=== PATIENT | male | born 1970 | race Caucasian/White ===

== ENCOUNTER → 2017-12-11 01:13 | Outpatient (CLI) | payer BC, SELFPAY ==
--- NOTE | 2017-12-11 09:52 | DI.REPORT_ITS ---
SYMPTOM/DIAGNOSIS: CHRONIC INTRACTABLE HEADACHE R51. 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 No priors for comparison. The abel/white matter differentiation is within normal limits. The ventricles and sulci are consistent with the patient's age. No evidence of an acute infarct or hemorrhage are present. No intracranial mass or enhancing lesion is identified. There is a flow void in the [place]. Mild mucosal thickening is seen in the maxillary sinuses bilaterally. The visualized paranasal sinuses are otherwise clear. IMPRESSION: Negative MRI of the brain.
[2017-12-11] MEDS: Gadoterate meglumine 20 ML VIAL IVP (10:42)
== END ==
PROVIDERS: PCP Emergency Medicine; Visit Provider Emergency Medicine
DX: R51 Headache (principal); C18.1 Malignant neoplasm of appendix; C64.9 Malignant neoplasm of unspecified kidney, except renal pelvis
CPT/HCPCS: 70553

== ENCOUNTER 2018-01-23 18:31 | Emergency (ER) | payer BC, SELFPAY ==
[2018-01-23 18:36] VITALS: BP 157/104; PULSE 67; RESP 16; TEMP 37; O2SAT 98
--- NOTE | 2018-01-23 19:00 | W.ED.GENAD ---
Discharge Plan Disposition Patient Disposition: HOME Condition: Improving Discharge Details Chief Complaint: Urinary Clinical Impression: Right flank pain, Right groin pain, Dysuria Primary Care Provider: Kory Morel ED Provider: Myranda Disla Home Meds and New Rx's Prescriptions: Continue clonazepam [Klonopin] 0.5 MG tablet 0.5 mg PO DAILY Qty: 60 RF: 6 citalopram 10 MG tablet 10 mg PO DAILY Qty: 90 RF: 6 zolpidem [Ambien] 10 MG tablet 1 tab PO HS PRNQty: 90 RF: 3 prochlorperazine maleate 5 MG tablet 5 mg PO Q8H PRN Qty: 90 RF: 3 topiramate [Topamax] 25 MG tablet 25 mg PO HS Qty: 60 RF: 5 clonazepam 0.5 mg tablet 0.5 mg PO HS Qty: 90 RF: 1 multivitamin 1 EACH capsule 1 tab PO DAILY RF: 0 Discharge Instructions Instructions: Dysuria (ED), Flank Pain (ED) Additional Instructions: Alternate tylenol and motrin as needed and directed for pain. Drink plenty of fluids. You should receive a call from care management regarding follow-up with urology. Return immediately to the emergency department any worsening or new concerning symptoms such as fever, worsening pain or any other concerns. 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 I am concerned for obstructing renal stone. Patient would prefer to pursue ultrasound over CT imaging. No assistant technician available in-house -- will ask for tech to come in to perform ultrasound. Toradol IV for pain. -- ECG reviewed and interpreted by me: Sinus bradycardia 55 bpm, single T-wave inversion noted in lead III, left axis deviation, not diagnostic. 20:09 --labs reviewed and nondiagnostic. Unfortunately operating theatre technician is not available. Plan to proceed to CT imaging. Patient consents to CT imaging. Patient reassessed and notes significant improvement after Toradol. Care signed out to Dr. Disla with plan to follow-up on imaging and reassess the patient. Lab Data Lab results reviewed: Yes I reviewed the patient's lab results. Laboratory Tests 01/23/18 01/23/18 01/23/18 18:57 18:57 18:57 WBC 8.62 RBC 4.80 Hgb 14.8 Hct 40.2 MCV 83.8 MCH 30.8 MCHC 36.8 H RDW 12.5 Plt Count 231 MPV 9.3 Immature Gran % 0.3 Neutrophils % 45.1 Lymphocytes % 43.3 Monocytes % 9.3 Eosinophils % 1.7 Basophils % 0.3 Absolute Neutrophils 3.88 Absolute Lymphocytes 3.73 H Absolute Monocytes 0.80 H Absolute Eosinophils 0.15 Absolute Basophils 0.03 Sodium 140 Potassium 3.7 Chloride 105 Carbon Dioxide 23.7 Anion Gap 11.3 H BUN 19 H Creatinine 1.41 H Estimated GFR/1.73 m2 54.35 Glucose 97 Calcium 8.8 Total Bilirubin 0.5 AST 40 H ALT 79 H Alkaline Phosphatase 52 Total Protein 7.6 Albumin 4.2 Lipase 225 Urine Color Yellow Urine Clarity Clear Urine pH 6.5 Ur Specific [place] 1.025 Urine Protein Negative Urine Ketones Trace H Urine Blood Negative Urine Nitrite Negative Urine Bilirubin Negative Urine Urobilinogen 0.2 Ur Leukocyte Esterase Negative Urine Glucose Negative <Myranda Disla, DO - Last Filed: 01/27/18 08:51> [facility] Narrative Medical decision making narrative: Please see Dr. Philip Razo's note for initial presentation, exam and plan. 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 Pt states the pain started in his R flank 8 days ago and then progressed to his R groin a few days ago and since then the flank pain resolved. Pt describes the pain as constant throbbing and aching with intermittent sharp pain. States his pain is worse with drinking water. States that pain feels similar to his previous renal stones. He also admits to dysuria. Some relief with motrin today. Denies fever, nausea, vomiting, hematuria. Plan upon endorsement was for f/u on CT to r/o renal stones. Labs reviewed and essentially unremarkable. WBC 8.62, Cr 1.4, UA notes ketones but no infection or blood. Hiren noted 0-2 rbc and wbc. Upon my evaluation, patient admitted to improvement of pain with Toradol from 6-07/15. He admits to return of pain at 10. Dose of morphine given. During my evaluation room, patient admitted to relief of some pain with morphine. 2144 --CT negative for acute findings. Patient stated to me that he felt like his dysuria started sometime yesterday which he thought was consistent with possibly passing a stone. I explained to patient that as his pain felt similar to his previous kidney stones, started in his right flank, then migrated to his right lower quadrant and then followed by dysuria, he may have certainly passed stone. He may have passed a small stone that may not have produced hydronephrosis. His CT did note hepatomegaly and his lab work noted an AST of 40 and an ALT of 79 which have been more elevated in the past. Patient expressed confusion about his pain and his negative CAT scan. I discussed that he could have had a recently passed stone. Additional differential diagnoses of pain in this region includes a muscle strain, groin strain. He has a previous history of appendectomy. He had a normal and testicular exam and denies exposure to sexually transmitted disease, penile discharge making epididymitis and torsion unlikely. He states he is sexually active with his and does not use protection. Patient is requesting to go home. He states he feels much better. Patient was not given IV fluids on arrival and his creatinine was 1.4. He was offered IV fluids but declines and is drinking water in room. He was instructed to drink plenty of water over the next few days. Patient has been seen in the past by Dr. Simpson for his kidney stones. Will place patient on care management list to arrange for a follow-up appointment w/ Dr. Simpson within the next 1-2 weeks if his symptoms are still present. Patient was instructed to return here immediately if he has any worsening symptoms. HPI - General Adult <Philip Razo MD - Last Filed: 01/28/18 08:15> General Mode of arrival: ambulatory. Date/Time Provider Initiated Documentation: 01/23/18 18:34. Limitations to Documentation: no limitations. Information obtained by: patient. 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 Patient notes pain that started in his right lower back approximately 8 days ago and has waxed and waned since onset. Pain has migrated in location to nail right lower abdomen. Pain is been more severe over the past couple days. He has worsening pain after urination. He has no associated fever. No vomiting. Related Data Home Medications Medication Instructions Recorded Confirmed multivitamin 1 tab PO DAILY 10/03/14 01/23/18 clonazepam 0.5 mg tablet 0.5 mg PO DAILY #60 tab 06/16/17 01/23/18 citalopram 10 mg PO DAILY #90 tab-cap 08/09/17 01/23/18 zolpidem [Ambien] 1 tab PO HS PRN #90 tab 09/20/17 01/23/18 prochlorperazine maleate 5 mg PO Q8H PRN #90 tab-cap 12/21/17 01/23/18 topiramate [Topamax] 25 mg PO HS #60 tab-cap 12/21/17 01/23/18 clonazepam 0.5 mg tablet 0.5 mg PO HS #90 tab 01/09/18 01/23/18 Previous Rx's Medication Instructions Recorded clonazepam 0.5 mg tablet 0.5 mg PO DAILY #60 tab 06/16/17 citalopram 10 mg PO DAILY #90 tab-cap 08/09/17 prochlorperazine maleate 5 mg PO Q8H PRN #90 tab-cap 12/21/17 topiramate [Topamax] 25 mg PO HS #60 tab-cap 12/21/17 clonazepam 0.5 mg tablet 0.5 mg PO HS #90 tab 01/09/18 Allergies Allergy/AdvReac Type Severity Reaction Status Date / Time rofecoxib [From Vioxx] AdvReac ESOPHIGITIS Unverified 12/21/17 10:55 anesthesia AdvReac Nausea Uncoded 01/04/17 07:15 General Stated Complaint: Urinary SAUL: 3 Review of Systems <Philip Razo MD - Last Filed: 01/28/18 08:15> Review of Systems All systems reviewed & are unremarkable except as noted in HPI and below Gastrointestinal Reports abdominal pain, Denies nausea and Denies vomiting Genitourinary Denies dysuria Exam <Philip Razo MD - Last Filed: 01/28/18 08:15> Const General: well developed and not in acute distress HENMT Mouth: moist mucous membranes Eyes Conjunctivae: conjunctivae normal Sclera: sclerae normal Neck Neck: normal visual inspection Resp Effort & Inspection: normal respiratory effort and no respiratory distress Auscultation: no rales, no rhonchi and no wheezes Cardio Jugular venous pressure: no JVD Rate: regular rate Rhythm: regular rhythm Heart Sounds: no gallops, no murmurs and no rubs GI Inspection: non-distended Palpation: soft, not firm, no guarding, not rigid and tender in the RLQ Auscultation: normal bowel sounds Skin General skin exam: no rashes or lesions noted and other (warm) Neuro General: alert, awake and moves all extremities Extrem General: no edema Psych Appearance: grossly normal Mental Status: mental status grossly normal Speech and Movement: speech and movement normal Course <Philip Razo MD - Last Filed: 01/28/18 08:15> Vital Signs Temperature 37.0 C 01/23/18 18:36 Pulse 67 01/23/18 18:36 Respiratory Rate 16 01/23/18 18:36 Blood Pressure 157/104 H 01/23/18 18:36 Pulse Oximetry 98 01/23/18 18:36 Temperature 37.0 C 01/23/18 18:36 Pulse 67 01/23/18 18:36 Respiratory Rate 16 01/23/18 18:36 Blood Pressure 157/104 H 01/23/18 18:36 Pulse Oximetry 98 01/23/18 18:36 Sign Out <Philip Razo MD - Last Filed: 01/28/18 08:15> Sign Out Data: Sign Out Comment: f/u ct, reassess patient, dispo Last updated by Philip Razo MD at 01/23/18 21:07
--- NOTE | 2018-01-23 19:09 | ED.GENADUL_ITS ---
Discharge Plan Disposition Patient Disposition: HOME Condition: Improving Discharge Details Chief Complaint: Urinary Clinical Impression: Right flank pain, Right groin pain, Dysuria Primary Care Provider: Kory Morel ED Provider: Myranda Disla Home Meds and New Rx's Prescriptions: Continue clonazepam [Klonopin] 0.5 MG tablet 0.5 mg PO DAILY Qty: 60 RF: 6 citalopram 10 MG tablet 10 mg PO DAILY Qty: 90 RF: 6 zolpidem [Ambien] 10 MG tablet 1 tab PO HS PRNQty: 90 RF: 3 prochlorperazine maleate 5 MG tablet 5 mg PO Q8H PRN Qty: 90 RF: 3 topiramate [Topamax] 25 MG tablet 25 mg PO HS Qty: 60 RF: 5 clonazepam 0.5 mg tablet 0.5 mg PO HS Qty: 90 RF: 1 multivitamin 1 EACH capsule 1 tab PO DAILY RF: 0 Discharge Instructions Instructions: Dysuria (ED), Flank Pain (ED) Additional Instructions: Alternate tylenol and motrin as needed and directed for pain. Drink plenty of fluids. You should receive a call from care management regarding follow-up with urology. Return immediately to the emergency department any worsening or new concerning symptoms such as fever, worsening pain or any other concerns. 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 I am concerned for obstructing renal stone. Patient would prefer to pursue ultrasound over CT imaging. No aircraft engine technician available in-house -- will ask for tech to come in to perform ultrasound. Toradol IV for pain. -- ECG reviewed and interpreted by me: Sinus bradycardia 55 bpm, single T-wave inversion noted in lead III, left axis deviation, not diagnostic. 20:09 --labs reviewed and nondiagnostic. Unfortunately farm technician is not available. Plan to proceed to CT imaging. Patient consents to CT imaging. Patient reassessed and notes significant improvement after Toradol. Care signed out to Dr. Disla with plan to follow-up on imaging and reassess the patient. Lab Data Lab results reviewed: Yes I reviewed the patient's lab results. Laboratory Tests 01/23/18 01/23/18 01/23/18 18:57 18:57 18:57 WBC 8.62 RBC 4.80 Hgb 14.8 Hct 40.2 MCV 83.8 MCH 30.8 MCHC 36.8 H RDW 12.5 Plt Count 231 MPV 9.3 Immature Gran % 0.3 Neutrophils % 45.1 Lymphocytes % 43.3 Monocytes % 9.3 Eosinophils % 1.7 Basophils % 0.3 Absolute Neutrophils 3.88 Absolute Lymphocytes 3.73 H Absolute Monocytes 0.80 H Absolute Eosinophils 0.15 Absolute Basophils 0.03 Sodium 140 Potassium 3.7 Chloride 105 Carbon Dioxide 23.7 Anion Gap 11.3 H BUN 19 H Creatinine 1.41 H Estimated GFR/1.73 m2 54.35 Glucose 97 Calcium 8.8 Total Bilirubin 0.5 AST 40 H ALT 79 H Alkaline Phosphatase 52 Total Protein 7.6 Albumin 4.2 Lipase 225 Urine Color Yellow Urine Clarity Clear Urine pH 6.5 Ur Specific [place] 1.025 Urine Protein Negative Urine Ketones Trace H Urine Blood Negative Urine Nitrite Negative Urine Bilirubin Negative Urine Urobilinogen 0.2 Ur Leukocyte Esterase Negative Urine Glucose Negative <Myranda Disla, DO - Last Filed: 01/27/18 08:51> [facility] Narrative Medical decision making narrative: Please see Dr. Philip Razo's note for initial presentation, exam and plan. 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 Pt states the pain started in his R flank 8 days ago and then progressed to his R groin a few days ago and since then the flank pain resolved. Pt describes the pain as constant throbbing and aching with intermittent sharp pain. States his pain is worse with drinking water. States that pain feels similar to his previous renal stones. He also admits to dysuria. Some relief with motrin today. Denies fever, nausea, vomiting, hematuria. Plan upon endorsement was for f/u on CT to r/o renal stones. Labs reviewed and essentially unremarkable. WBC 8.62, Cr 1.4, UA notes ketones but no infection or blood. Hiren noted 0-2 rbc and wbc. Upon my evaluation, patient admitted to improvement of pain with Toradol from 6- 07/15. He admits to return of pain at 10. Dose of morphine given. During my evaluation room, patient admitted to relief of some pain with morphine. 2144 --CT negative for acute findings. Patient stated to me that he felt like his dysuria started sometime yesterday which he thought was consistent with possibly passing a stone. I explained to patient that as his pain felt similar to his previous kidney stones, started in his right flank, then migrated to his right lower quadrant and then followed by dysuria, he may have certainly passed stone. He may have passed a small stone that may not have produced hydronephrosis. His CT did note hepatomegaly and his lab work noted an AST of 40 and an ALT of 79 which have been more elevated in the past. Patient expressed confusion about his pain and his negative CAT scan. I discussed that he could have had a recently passed stone. Additional differential diagnoses of pain in this region includes a muscle strain, groin strain. He has a previous history of appendectomy. He had a normal and testicular exam and denies exposure to sexually transmitted disease, penile discharge making epididymitis and torsion unlikely. He states he is sexually active with his and does not use protection. Patient is requesting to go home. He states he feels much better. Patient was not given IV fluids on arrival and his creatinine was 1.4. He was offered IV fluids but declines and is drinking water in room. He was instructed to drink plenty of water over the next few days. Patient has been seen in the past by Dr. Simpson for his kidney stones. Will place patient on care management list to arrange for a follow-up appointment w/ Dr. Simpson within the next 1-2 weeks if his symptoms are still present. Patient was instructed to return here immediately if he has any worsening symptoms. HPI - General Adult <Philip Razo MD - Last Filed: 01/28/18 08:15> General Mode of arrival: ambulatory . Date/Time Provider Initiated Documentation: 01/23/18 18:34 . Limitations to Documentation: no limitations . Information obtained by: patient . 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 Patient notes pain that started in his right lower back approximately 8 days ago and has waxed and waned since onset. Pain has migrated in location to nail right lower abdomen. Pain is been more severe over the past couple days. He has worsening pain after urination. He has no associated fever. No vomiting. Related Data Home Medications Medication Instructions Recorded Confirmed multivitamin 1 tab PO DAILY 10/03/14 01/23/18 clonazepam 0.5 mg tablet 0.5 mg PO DAILY #60 tab 06/16/17 01/23/18 citalopram 10 mg PO DAILY #90 tab-cap 08/09/17 01/23/18 zolpidem [Ambien] 1 tab PO HS PRN #90 tab 09/20/17 01/23/18 prochlorperazine maleate 5 mg PO Q8H PRN #90 tab-cap 12/21/17 01/23/18 topiramate [Topamax] 25 mg PO HS #60 tab-cap 12/21/17 01/23/18 clonazepam 0.5 mg tablet 0.5 mg PO HS #90 tab 01/09/18 01/23/18 Previous Rx's Medication Instructions Recorded clonazepam 0.5 mg tablet 0.5 mg PO DAILY #60 tab 06/16/17 citalopram 10 mg PO DAILY #90 tab-cap 08/09/17 prochlorperazine maleate 5 mg PO Q8H PRN #90 tab-cap 12/21/17 topiramate [Topamax] 25 mg PO HS #60 tab-cap 12/21/17 clonazepam 0.5 mg tablet 0.5 mg PO HS #90 tab 01/09/18 Allergies Allergy/AdvReac Type Severity Reaction Status Date / Time rofecoxib [From Vioxx] AdvReac ESOPHIGITIS Unverified 12/21/17 10:55 anesthesia AdvReac Nausea Uncoded 01/04/17 07:15 General Stated Complaint: Urinary SAUL: 3 Review of Systems <Philip Razo MD - Last Filed: 01/28/18 08:15> Review of Systems All systems reviewed & are unremarkable except as noted in HPI and below Gastrointestinal Reports abdominal pain, Denies nausea and Denies vomiting Genitourinary Denies dysuria Exam <Philip Razo MD - Last Filed: 01/28/18 08:15> Const General: well developed and not in acute distress HENMT Mouth: moist mucous membranes Eyes Conjunctivae: conjunctivae normal Sclera: sclerae normal Neck Neck: normal visual inspection Resp Effort & Inspection: normal respiratory effort and no respiratory distress Auscultation: no rales, no rhonchi and no wheezes Cardio Jugular venous pressure: no JVD Rate: regular rate Rhythm: regular rhythm Heart Sounds: no gallops, no murmurs and no rubs GI Inspection: non-distended Palpation: soft, not firm, no guarding, not rigid and tender in the RLQ Auscultation: normal bowel sounds Skin General skin exam: no rashes or lesions noted and other (warm) Neuro General: alert, awake and moves all extremities Extrem General: no edema Psych Appearance: grossly normal Mental Status: mental status grossly normal Speech and Movement: speech and movement normal Course <Philip Razo MD - Last Filed: 01/28/18 08:15> Vital Signs Temperature 37.0 C 01/23/18 18:36 Pulse 67 01/23/18 18:36 Respiratory Rate 16 01/23/18 18:36 Blood Pressure 157/104 H 01/23/18 18:36 Pulse Oximetry 98 01/23/18 18:36 Temperature 37.0 C 01/23/18 18:36 Pulse 67 01/23/18 18:36 Respiratory Rate 16 01/23/18 18:36 Blood Pressure 157/104 H 01/23/18 18:36 Pulse Oximetry 98 01/23/18 18:36 Sign Out <Philip Razo MD - Last Filed: 01/28/18 08:15> Sign Out Data: Sign Out Comment: f/u ct, reassess patient, dispo Last updated by Philip Razo MD at 01/23/18 21:07
[2018-01-23 19:15] LABS: Bilirubin Negative (Negative); Blood Negative (Negative); Clarity Clear; Glucose Negative (Negative); Ketones Trace mg/dL (Negative); Leukocyte Esterase Negative (Negative); Nitrite Negative (Negative); Specific Gravity 1.025 (1.005-1.025); Urobilinogen 0.2 EU/dL (Up TO 0.2); pH 6.5 (5-8)
[2018-01-23 19:18] LABS: Abs Immature Grans 0.03 k/cumm (0.0-0.09); Absolute Basophil Count 0.03 k/cumm (0.0-0.2); Absolute Eosinophil Count 0.15 k/cumm (0.0-0.7); Absolute Lymphocyte Count 3.73 k/cumm (1.2-3.4); Absolute Neutrophil Count 3.88 k/cumm (1.2-6.7); Basophils % 0.3; Eosinophils % 1.7; HCT 40.2 % (40.0-50.0); HGB 14.8 g/dL (13.5-17.5); Immature Grans % 0.3; Lymphocytes % 43.3; Mean Corp. HGB Concentration 36.8 g/dL (32.0-36.0); Mean Corpuscular Hemoglobin 30.8 pg (27.0-33.0); Mean Corpuscular Volume 83.8 fL (80-95); Mean Platelet Volume 9.3 fL (8.0-11.0); Monocytes % 9.3; Neutrophils % 45.1; Platelet Count 231 x1000/uL (130-400); RBC Distribution Width 12.5 % (11.8-14.1); White Blood Cell Count 8.62 k/cumm (4.4-10.8)
[2018-01-23 19:29] LABS: ALT 79 U/L (12-78); AST 40 U/L (15-37); Albumin 4.2 g/dL (3.4-5.0); Alkaline Phosphatase 52 U/L (46-116); Anion Gap 11.3 mmol/L (3-11); BUN 19 mg/dL (7-18); Bilirubin, Total 0.5 mg/dL (0.2-1.0); CO2 23.7 mmol/L (21.0-32.0); CREATININE 1.41 mg/dL (0.70-1.30); Calcium 8.8 mg/dL (8.5-10.1); Chloride 105 mmol/L (98-107); Estimated GFR 54.35 (mL/min/1.73m2); Glucose 97 mg/dL (70-100); Lipase 225 U/L (73-393); Potassium 3.7 mmol/L (3.5-5.1); Sodium 140 mmol/L (136-145); Total Protein 7.6 g/dL (6.4-8.2)
--- NOTE | 2018-01-23 20:07 | DI.CT_ITS ---
SYMPTOM/DIAGNOSIS: RLQ PAIN, H/O STONES ABDOMEN AND PELVIC CT: A noncontrast CT of the abdomen and pelvis was performed. Images obtained through the lung bases are unremarkable. Note is made of hepatic steatosis. Liver and spleen otherwise unremarkable. Gallbladder is CT normal. Pancreas is unremarkable in appearance and no biliary dilatation is seen. Adrenals appear intact bilaterally. There is a non obstructing right lower pole renal calculus. No additional urinary tract calcification is seen. No evidence of obstruction. Urinary bladder grossly unremarkable by noncontrast criteria. No significant abdominal wall hernia is seen. No abdominal or pelvic adenopathy is seen. Apparent prior appendectomy versus cecal resection noted. No other focal bowel pathology identified. CONCLUSION: 1. Non obstructing right renal calculus. 2. Hepatic steatosis.
[2018-01-23] MEDS: MORPHine 10 MG/ML VIAL 4 MG IVP (20:53)
[2018-01-23 21:01] VITALS: BP 157/105; PULSE 54; RESP 17; TEMP 36.6; O2SAT 100
--- NOTE | 2018-01-23 21:26 | DI.VRAD_ITS ---
EXAM: CT Abdomen and Pelvis Without Intravenous Contrast EXAM DATE/TIME: 01/23/2018 8:08 PM CLINICAL HISTORY: 47 years old, male; Signs and symptoms; Other: Pain rlq; Prior surgery; Surgery date: 6+ months TECHNIQUE: Axial computed tomography images of the abdomen and pelvis without intravenous contrast. Coronal and sagittal reformatted images were created and reviewed. COMPARISON: CT RENAL COLIC WO CONTRAST 01/26/2017 5:15 PM FINDINGS: Lower thorax: No acute findings. ABDOMEN: Liver: There are is hepatomegaly. The liver measured approximately 20.1 cm in the midclavicular line. There is associated moderate-advanced diffuse hepatic steatosis present. Gallbladder and bile ducts: Normal. No calcified stones. No ductal dilation. Pancreas: Normal. No ductal dilation. Spleen: Normal. No splenomegaly. Adrenals: Normal. No mass. Kidneys and ureters: 3.9 mm non- obstructing calculus is again seen in the anterolateral mid-lower right renal pole. This has remained unchanged in size and position. Stomach and bowel: Circumferential surgical sutures are seen in the mid-lower ascending colon from prior surgical anastomosis. Appendix: There is thought to have been prior appendectomy. Correlation with past known surgical history is needed. PELVIS: Bladder: Unremarkable as visualized. Reproductive: Unremarkable as visualized. ABDOMEN and PELVIS: Intraperitoneal space: Normal. No free air. No significant fluid collection. Bones/joints: Moderate bilateral popliteal facet arthropathy is present at L4-5 and L5-S1. Minimal marginal osteophytic spurring is present throughout the lumbar vertebrae. Soft tissues: Unremarkable. Vasculature: Normal. No abdominal aortic aneurysm. Lymph nodes: Normal. No enlarged lymph nodes. IMPRESSION: No acute findings are detected. Dictated and Authenticated by: Piyush Ballesteros MD. Ordering:MONI BUSTOS MD
[2018-01-23 22:44] VITALS: BP 118/70; PULSE 86; RESP 18; TEMP 36.8; O2SAT 99
--- NOTE | 2018-01-24 08:35 | NUR.NOTE ---
renal ultra sound order cancelled per Dr. Adams as no US. tech was available on DOS. Nursing Note:
--- NOTE | 2018-01-24 09:18 | PDOC.ERCMPRO ---
Care Management Progress Note 01/24/18-Pt seen for lower right sided back pain by Dr. Sherley shahid on 01/23/18. F/U with Urology request faxed .
--- NOTE | 2018-01-24 09:19 | CMPROGNOTE_ITS ---
Care Management Progress Note 01/24/18-Pt seen for lower right sided back pain by Dr. Sherley shahid on 01/23/18. F /U with Urology request faxed .
== END 2018-01-23 22:42 | disposition home or self-care (01) ==
PROVIDERS: Student in an Organized Health Care Education/Training Program; Emergency Provider Physician Assistant; PCP Emergency Medicine
DX: R30.0 Dysuria (principal); R10.31 Right lower quadrant pain; M54.5 Low back pain; Z87.442 Personal history of urinary calculi
CPT/HCPCS: 36415; 36416; 80053; 82962; 83690; 93005; 96374; 99285; 74176; 81003; 85025; 93010; 99284; J2270

== ENCOUNTER 2018-02-14 09:29 | Outpatient (REF) | payer BC, SELFPAY ==
[2018-02-14 10:28] LABS: Creatinine,Urine 109.01 mg/dL
[2018-02-14 10:30] LABS: Sodium, Urine 140 mmol/L
[2018-02-14 10:37] LABS: CLEAVED CELLS 371 mmol/24h (40-220); Creatinine,24hr Ur 2.83 g/24hr (0.95-2.49); Total Volume 2650 ml
[2018-02-15 09:13] LABS: Phosphorus Urine 79.1 mg/dl; Phosphorus Urine 24hr 2.1 g/24h (0.4-1.3)
[2018-02-15 09:17] LABS: Magnesium 24hr Urine 188.2 mg/24h (73.0-122.0); Magnesium Random Urine 7.1 mg/dl
[2018-02-15 09:19] LABS: Uric Acid Urine 40.4 mg/dl; Uric Acid Urine 24hr 1071 mg/24h (250-750)
[2018-02-15 09:22] LABS: Calcium Urine 20.8 mg/dl; Calcium Urine 24 hr 551 mg/24hr (100-300)
[2018-02-15 17:46] LABS: Citrate Excretion, 24hr, U 490 mg/24 h (335 - 1191); Urine Volume 2650 mL
[2018-02-15 18:33] LABS: Oxalate Conc (mmol/L) 0.13 mmol/L; Oxalate Concentration 11.4 mg/L; Oxalate, U 0.34 mmol/24 h (0.11-0.46); Oxalate, U 29.9 mg/24 h (9.7 - 40.5); Urine Volume 2650 mL
== END 2018-02-14 09:49 ==
LOC: LBN 09:29
PROVIDERS: PCP Emergency Medicine; Visit Provider Urology
DX: N20.0 Calculus of kidney (principal)
CPT/HCPCS: 82507; 83735; 81050; 82340; 82570; 83945; 84105; 84300; 84560

== ENCOUNTER 2018-02-15 10:57 | Outpatient (CLI) | payer BC, SELFPAY | END 2018-02-15 11:17 | PROVIDERS: PCP Emergency Medicine; Visit Provider Psychiatry & Neurology Neurology | DX: R51 Headache (principal) | CPT/HCPCS: 36415; 87476 ==

== ENCOUNTER 2019-01-21 23:33 | Emergency (ER) | payer BC, SELFPAY ==
[2019-01-21 23:42] VITALS: BP 166/96; PULSE 56; RESP 20; TEMP 37.1; O2SAT 98
[2019-01-21] MEDS: Normal Saline 1,000 ML 150 ML IV (23:45)
--- NOTE | 2019-01-21 23:57 | ED.GENADUL_ITS ---
Discharge Plan Disposition Patient Disposition: HOME Condition: Good Discharge Details Chief Complaint: FlankPain Clinical Impression: Renal colic on right side Primary Care Provider: Kory Morel ED Provider: Berhane Mo Meds and New Rx's Prescriptions: New oxycodone 5 mg tablet 5 mg PO Q6H PRN (Reason: pain) Qty: 10 RF: 0 Discharge Instructions Instructions: Oxycodone, Rapid Release (By mouth), Renal Colic (ED) Additional Instructions: Please take 1 g of Tylenol when you get home at 2 AM. Alternate with ibuprofen 600 mg in 4 hours. Use oxycodone if needed for breakthrough pain. Stay hydrated. Follow-up with Dr. Simpson end of this week or early next week if you have not passed the stone. Return to ED if you develop fever, uncontrolled pain, uncontrolled vomiting. Referrals: Kory Morel, [Primary Care Provider] - Len Simpson MD [ [facility] STAFF PHYSICIAN] - Medical Decision Making Patient presenting with pain that he reports similar to previous kidney stones. Onset this evening and worse as the night went on. 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 Last CT documented in the record is from June. At that time he was seen to have a 3 mm stone in the right kidney. He reports that all previous kidney stones have passed on their own. Will place IV and give antiemetic and pain medication. Will send CBC, BMP and urinalysis. Patient urinalysis is positive for blood but no sign of infection. White count essentially normal. Kidney function is baseline. Patient had relief of pain with Toradol and morphine. 3 mm stone should pass on its own and given where his pain is it is likely distal at this point. We will hold off on imaging for now. We will have patient use Motrin alternating with Tylenol but will give oxycodone for breakthrough pain. State information sheet and consent form done. Reviewed with patient in the [place] prescription monitoring site shows no narcotics in the last year. He declines Flomax. He will follow-up with Dr. Simpson at the end of the week if he has not passed a stone. Return to ED if he develops fever, uncontrolled pain, uncontrolled vomiting. Medical Records Medical records reviewed: Yes I reviewed the patient's medical records. Lab Data Lab results reviewed: Yes I reviewed the patient's lab results. HPI General Mode of arrival: ambulatory . Date/Time Provider Initiated Documentation: 01/21/19 23:57 . Limitations to Documentation: no limitations . Information obtained by: patient, RN notes reviewed and old records reviewed . HPI Narrative: Patient presents to ED with complaint of right-sided flank and abdominal pain. Patient does have a history of kidney stones. Pain started around 7 PM this evening. Has become progressively worse. Stabbing pain in the back and flank. Constant pain in the abdomen radiating down into the groin. He did have nausea and vomiting with uncontrolled pain. He has had no fever. He is unable to get comfortable at this point and presents to ED for evaluation. Related Data Home Medications Medication Instructions Recorded Confirmed oxycodone 5 mg PO Q6H PRN #10 tab 01/22/19 Previous Rx's Medication Instructions Recorded oxycodone 5 mg PO Q6H PRN #10 tab 01/22/19 Allergies Allergy/AdvReac Type Severity Reaction Status Date / Time rofecoxib [From Vioxx] AdvReac ESOPHIGITIS Verified 01/21/19 23:55 anesthesia AdvReac Nausea Uncoded 01/21/19 23:55 General Stated Complaint: FlankPain SAUL: 3 Review of Systems Review of Systems Narrative: 02/18 Review of Systems completed and is negative except as stated above in HPI (Systems reviewed: Const, Eyes, ENT, Resp, CV, GI, , MSK, Skin, Neuro) PFSH Medical History Adenocarcinoma of appendix (Chronic) 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 Shoulder surgery x2. b. Knee surgery x2. c. Lap right hemicolectomy 01/14/2014 Repair, ACL LEFT Social History Smoking/Tobacco Use Status: Never Drug use: Never Household members: spouse Do you feel safe at home: Yes Do you feel safe in your relationship?: Yes Additional Social history: He is with 4 kids (college to 7th grade). 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 He does not smoke. He drinks ETOH rarely. No illicit drug use. Exam Narrative Exam Narrative: Vitals: Afebrile. Elevated blood pressure otherwise normal vitals and pulse ox. Const: WDWN male appears uncomfortable, holding right lower back. HEENT: NC/AT. Normal facial exam. Eyes: Normal conjunctiva and sclera. Neck: Supple. Trachea midline. Lungs: Normal respiratory effort. Lungs are clear. Cor: RRR without murmur/gallop. Good radial pulses. GI: Soft. NT/ND. No guarding or rebound. Neuro: A+O x 3. CN grossly in tact. Good strength and no focal deficit. Ext: No C/C/E. No deformity or tenderness. Skin: Warm and dry without rash. Course Vital Signs Vital signs: Vital Signs Temperature 98.8 F 01/21/19 23:42 Pulse 56 L 01/21/19 23:42 Respiratory Rate 20 01/21/19 23:42 Blood Pressure 166/96 H 01/21/19 23:42 Pulse Oximetry 98 01/21/19 23:42 Temperature 98.8 F 01/21/19 23:42 Temperature Source Temporal Artery Scan 01/21/19 23:42 Pulse 56 L 01/21/19 23:42 Respiratory Rate 20 01/21/19 23:42 Respiratory Effort Non-Labored 01/21/19 23:55 Blood Pressure 166/96 H 01/21/19 23:42 Blood Pressure Position Supine 01/21/19 23:42 Pulse Oximetry 98 01/21/19 23:42 Oxygen Delivery Method Room Air 01/21/19 23:42 Oxygen Flow Rate 0 01/21/19 23:42 Pain Level 8 01/21/19 23:55
[2019-01-22] MEDS: Ondansetron 4 MG/2 ML VIAL IVP (00:10)
[2019-01-22] MEDS: MORPHine 10 MG/ML VIAL 5 MG IVP (00:15)
[2019-01-22] MEDS: Ketorolac 30 MG/ML VIAL IVP (00:22)
[2019-01-22 00:37] LABS: Abs Immature Grans 0.03 k/cumm (0.0-0.09); Absolute Basophil Count 0.03 k/cumm (0.0-0.2); Absolute Eosinophil Count 0.06 k/cumm (0.0-0.7); Absolute Lymphocyte Count 2.15 k/cumm (1.2-3.4); Absolute Monocyte Count 0.65 k/cumm (0.11-0.7); Absolute Neutrophil Count 8.41 k/cumm (1.2-6.7); Basophils % 0.3; Eosinophils % 0.5; HCT 41.7 % (40.0-50.0); HGB 14.9 g/dL (13.5-17.5); Immature Grans % 0.3; Mean Corp. HGB Concentration 35.7 g/dL (32.0-36.0); Mean Corpuscular Hemoglobin 31.5 pg (27.0-33.0); Mean Corpuscular Volume 88.2 fL (80-95); Mean Platelet Volume 10.3 fL (8.0-11.0); Monocytes % 5.7; Neutrophils % 74.2; Platelet Count 218 x1000/uL (130-400); RBC 4.73 m/cumm (4.50-6.00); RBC Distribution Width 12.3 % (11.8-14.1); White Blood Cell Count 11.34 k/cumm (4.4-10.8)
[2019-01-22 00:41] LABS: Bilirubin Negative (Negative); Blood Large (Negative); Clarity Clear (Clear); Glucose Negative (Negative); Ketones Negative (Negative); Leukocyte Esterase Negative (Negative); Nitrite Negative (Negative); Specific Gravity 1.025 (1.005-1.025); Urobilinogen 0.2 EU/dL (Up TO 0.2); pH 5.5 (5-8)
[2019-01-22 00:45] LABS: Anion Gap 11.4 mmol/L (3-11); BUN 32 mg/dL (7-18); CO2 23.6 mmol/L (21.0-32.0); CREATININE 1.42 mg/dL (0.70-1.30); Calcium 9.2 mg/dL (8.5-10.1); Chloride 104 mmol/L (98-107); Estimated GFR 53.67 (mL/min/1.73m2); Glucose 133 mg/dL (70-100); Sodium 139 mmol/L (136-145)
[2019-01-22 00:48] LABS: Bacteria Negative HPF (Negative); C & S Indicated? No; Casts Negative LPF (Negative); Crystals Negative HPF (Negative); Epithelial Cells Rare HPF (Negative); Mucus Negative (Negative); RBC >50 (0-2); WBC Negative HPF (0-5)
[2019-01-22] MEDS: oxyCODONE 5 MG TAB PO (01:16)
== END 2019-01-22 01:32 | disposition home or self-care (01) ==
PROVIDERS: Emergency Provider Emergency Medicine; PCP Emergency Medicine
DX: N23 Unspecified renal colic (principal); M54.5 Low back pain; R11.2 Nausea with vomiting, unspecified; Z87.442 Personal history of urinary calculi
CPT/HCPCS: 36415; 80048; 96361; 96374; 96375; 99284; 81003; 81015; 85025; J1885; J2270; J2405

== ENCOUNTER 2019-01-24 17:20 | Observation (INO) | payer BC, SELFPAY ==
--- NOTE | 2019-01-24 17:27 | W.PM.HP.N ---
Date of service: 01/24/19 Time of Service: 17:28 Assessment and Plan Assessment and plan (1) Renal colic on right side: Status: Acute Assessment and plan: He is not able to tolerate oral medications, so we will put him in the hospital for IV hydration and IV analgesics. We will schedule him for cystoscopy, right retrograde pyelogram, right ureteroscopy with stone manipulation for tomorrow morning. I would expect he will be able to go home following the procedure. History of Present Illness History of Present Illness Chief Complaint: Renal colic Narrative: This is a 48-year-old gentleman who has a past history of kidney stones. I first met him 2 years ago after an ER visit. He was identified as having a ureteral stone as well as a nonobstructing kidney stone. He passed the ureteral stone without requiring surgical intervention. Since then, he has had multiple imaging studies all of which showed the right kidney stone. He presented to the emergency room earlier this week with an acute onset of right-sided flank pain. Repeat imaging was not performed. He was treated symptomatically with analgesics. He did reasonably well with intermittent pain for about 2 days. He then developed persistent pain, nausea and vomiting which has lasted all day today. He came into the office for an emergent visit. He is not been having any fevers or chills. He has not been able to keep his medications down. We are admitting him for hydration and analgesia in preparation for a surgical procedure tomorrow Review of Systems Review of Systems Narrative: No fevers or chills No vision change. Has been told his eyes are developing a yellowish tint. No diabetes or thyroid dysfunction No shortness of breath, cough or hemoptysis No chest pain or palpitations Nausea, vomitting, dry heaves No seizures, strokes or peripheral neuropathy. Hx migraine HOPKINS No bleeding disorders or anemia No gout PFSH Social History Smoking/Tobacco Use Status: Never Drug use: Never Household members: spouse Do you feel safe at home: Yes Do you feel safe in your relationship?: Yes Additional Social history: He is with 4 kids (college to 7th grade). 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 He does not smoke. He drinks ETOH rarely. No illicit drug use. Meds Home Medications and Allergies Home Medications Medication Instructions Recorded Confirmed Type oxycodone 5 mg PO Q6H PRN #10 tab 01/22/19 01/24/19 Rx Allergies Allergy/AdvReac Type Severity Reaction Status Date / Time rofecoxib [From Vioxx] AdvReac ESOPHIGITIS Verified 01/24/19 16:57 anesthesia AdvReac Nausea Uncoded 01/24/19 16:57 Exam Narrative Exam Narrative: He looks very uncomfortable. He does not appear septic or toxic. His vital signs are documented elsewhere in this chart His neck is supple with no mass His chest wall motion is normal. His lungs are clear bilaterally Cardiac exam shows a regular rate and rhythm His abdomen is soft with no guarding or rebound tenderness There is no edema in the lower extremities He is awake, alert and oriented Results Labs Result diagrams: 01/24/19 17:21 01/24/19 17:21
[2019-01-24 17:44] VITALS: BP 131/76; PULSE 48; RESP 18; TEMP 37.3; O2SAT 98
[2019-01-24 17:52] VITALS: BP 131/76; PULSE 48; RESP 18; TEMP 37.3; O2SAT 98
[2019-01-24 18:10] VITALS: BP 131/76; PULSE 48; RESP 18; TEMP 37.3; O2SAT 98
[2019-01-24] MEDS: Lactated Ringers 1,000 ML 150 ML IV (18:33)
[2019-01-24] MEDS: Tamsulosin 0.4 MG CAPCR PO (18:34)
[2019-01-24] MEDS: HYDROmorphone 2 MG/ML VIAL IVP (18:34)
[2019-01-24 18:40] LABS: Abs Immature Grans 0.02 k/cumm (0.0-0.09); Absolute Basophil Count 0.01 k/cumm (0.0-0.2); Absolute Eosinophil Count 0.03 k/cumm (0.0-0.7); Absolute Lymphocyte Count 1.53 k/cumm (1.2-3.4); Absolute Monocyte Count 0.99 k/cumm (0.11-0.7); Absolute Neutrophil Count 7.21 k/cumm (1.2-6.7); Basophils % 0.1; Eosinophils % 0.3; HCT 40.1 % (40.0-50.0); HGB 14.6 g/dL (13.5-17.5); Immature Grans % 0.2; Lymphocytes % 15.6; Mean Corp. HGB Concentration 36.4 g/dL (32.0-36.0); Mean Corpuscular Hemoglobin 31.7 pg (27.0-33.0); Mean Platelet Volume 9.9 fL (8.0-11.0); Monocytes % 10.1; Neutrophils % 73.7; Platelet Count 181 x1000/uL (130-400); RBC 4.61 m/cumm (4.50-6.00); RBC Distribution Width 11.8 % (11.8-14.1); White Blood Cell Count 9.79 k/cumm (4.4-10.8)
[2019-01-24 18:56] LABS: ALT 26 U/L (16-63); AST 20 U/L (15-37); Alkaline Phosphatase 51 U/L (46-116); Anion Gap 10.7 mmol/L (3-11); BUN 26 mg/dL (7-18); Bilirubin, Total 0.8 mg/dL (0.2-1.0); CO2 24.3 mmol/L (21.0-32.0); CREATININE 2.14 mg/dL (0.70-1.30); Calcium 9.3 mg/dL (8.5-10.1); Chloride 103 mmol/L (98-107); Estimated GFR 33.43 (mL/min/1.73m2); Glucose 98 mg/dL (70-100); Potassium 4.1 mmol/L (3.5-5.1); Sodium 138 mmol/L (136-145); Total Protein 7.6 g/dL (6.4-8.2)
[2019-01-24 19:10] VITALS: PULSE 50
[2019-01-24] MEDS: Ketorolac 15 MG/ML VIAL IVP (22:50)
[2019-01-24 23:02] VITALS: BP 153/86; PULSE 53; RESP 18; TEMP 37.5; O2SAT 99
[2019-01-25] VITALS (9 sets, daily range): BP systolic 137–157; BP diastolic 74–105; PULSE 50–68; RESP 11–15; TEMP 36.4–36.8; O2SAT 95–98
[2019-01-25] MEDS: Lactated Ringers 1,000 ML 150 ML IV ×3 (00:47→11:59)
[2019-01-25] MEDS: HYDROmorphone 2 MG/ML VIAL IVP ×2 (04:19→07:39)
--- NOTE | 2019-01-25 07:30 | W.PM.PROGNOT ---
Date of Service Date of service: 01/25/19 Time of Service: 07:00 Assessment and Plan Assessment and plan (1) Renal colic on right side: Status: Acute Assessment and plan: We will move ahead with cystoscopy and retrograde pyelogram today. In light of his worsening renal function, I will actually do a retrograde pyelogram on the left side as well. I expect that at a minimum I will leave a stent on the right. Subjective Subjective Interval history since last seen: His nausea and pain were much more manageable with IV pain meds and antiemetics overnight. He has not passed a stone. He has no fever or chills Exam Narrative Exam Narrative: He looks uncomfortable, but improved from the last evening. He is cooperative. His vital signs are documented elsewhere in the chart. He is awake, alert and oriented We reviewed his lab work. His renal function has worsened compared to Monday. Objective Objective Clinical Data: Abnormal lab results 01/24/19 01/24/19 Range/Units 18:32 18:32 MCHC 36.4 H (32.0-36.0) g/dL Absolute Neutrophils 7.21 H (1.2-6.7) k/cumm Absolute Monocytes 0.99 H (0.11-0.7) k/cumm BUN 26 H (7-18) mg/dL Creatinine 2.14 H D (0.70-1.30) mg/dL Vital Signs Temperature 36.4 C L 01/25/19 07:24 Temperature Source Tympanic 01/25/19 07:24 Pulse 52 L 01/25/19 07:24 Pulse Rhythm Regular 01/25/19 02:50 Respiratory Rate 12 01/25/19 07:24 Respiratory Effort Non-Labored 01/25/19 02:50 Respiratory Depth Normal 01/25/19 02:50 Respiratory Pattern Normal 01/25/19 02:50 Blood Pressure 137/77 01/25/19 07:24 Pulse Oximetry 97 01/25/19 07:24 Oxygen Delivery Method Room Air 01/25/19 07:24 Oxygen Flow Rate 0 01/25/19 07:24 Pain Level 7 01/25/19 07:24 Intake & Output 01/24/19 01/24/19 01/25/19 11:59 23:59 11:59 Intake Total 935 / 935 Output Total 700 / 700 200 / 200 Balance -700 / -700 735 / 735 Weight 110 kg Intake: IV 935 / 935 Output: Urine 700 / 700 200 / 200 Other: Urine Color Yellow Yellow Urine Appearance Clear Clear Urine Odor None None Strain Urine Result Negative-No Stones/Gravel Negative-No Stones/Gravel Voiding Methods Urinal Laboratory Results WBC 9.79 k/cumm (4.4-10.8) 01/24/19 18:32 RBC 4.61 m/cumm (4.50-6.00) 01/24/19 18:32 Hgb 14.6 g/dL (13.5-17.5) 01/24/19 18:32 Hct 40.1 % (40.0-50.0) 01/24/19 18:32 MCV 87.0 fL (80-95) 01/24/19 18:32 MCH 31.7 pg (27.0-33.0) 01/24/19 18:32 MCHC 36.4 g/dL (32.0-36.0) H 01/24/19 18:32 RDW 11.8 % (11.8-14.1) 01/24/19 18:32 Plt Count 181 x1000/uL (130-400) 01/24/19 18:32 MPV 9.9 fL (8.0-11.0) 01/24/19 18:32 Immature Gran % 0.2 01/24/19 18:32 Neutrophils % 73.7 01/24/19 18:32 Lymphocytes % 15.6 01/24/19 18:32 Monocytes % 10.1 01/24/19 18:32 Eosinophils % 0.3 01/24/19 18:32 Basophils % 0.1 01/24/19 18:32 Absolute Neutrophils 7.21 k/cumm (1.2-6.7) H 01/24/19 18:32 Absolute Lymphocytes 1.53 k/cumm (1.2-3.4) 01/24/19 18:32 Absolute Monocytes 0.99 k/cumm (0.11-0.7) H 01/24/19 18:32 Absolute Eosinophils 0.03 k/cumm (0.0-0.7) 01/24/19 18:32 Absolute Basophils 0.01 k/cumm (0.0-0.2) 01/24/19 18:32 Sodium 138 mmol/L (136-145) 01/24/19 18:32 Potassium 4.1 mmol/L (3.5-5.1) 01/24/19 18:32 Chloride 103 mmol/L (98-107) 01/24/19 18:32 Carbon Dioxide 24.3 mmol/L (21.0-32.0) 01/24/19 18:32 Anion Gap 10.7 mmol/L (3-11) 01/24/19 18:32 BUN 26 mg/dL (7-18) H 01/24/19 18:32 Creatinine 2.14 mg/dL (0.70-1.30) H D 01/24/19 18:32 Estimated GFR/1.73 m2 33.43 (mL/min/1.73m2) 01/24/19 18:32 Glucose 98 mg/dL (70-100) 01/24/19 18:32 Calcium 9.3 mg/dL (8.5-10.1) 01/24/19 18:32 Total Bilirubin 0.8 mg/dL (0.2-1.0) 01/24/19 18:32 AST 20 U/L (15-37) 01/24/19 18:32 ALT 26 U/L (16-63) 01/24/19 18:32 Alkaline Phosphatase 51 U/L (46-116) 01/24/19 18:32 Total Protein 7.6 g/dL (6.4-8.2) 01/24/19 18:32 Albumin 4.0 g/dL (3.4-5.0) 01/24/19 18:32
[2019-01-25] MEDS: Normal Saline Flush 10 ML SYR (07:38)
--- NOTE | 2019-01-25 08:34 | DI.RAD_ITS ---
EXAM: RF CYSTOGRAM CLINICAL HISTORY: Renal colic on right side. TECHNIQUE: 2D and realtime digital imaging was performed. COMPARISON: No exams were available for comparison FINDINGS: Underfluoroscopic guidance, Dr. Simpson carried out a right cystogram. Images of the pelvis reveal cont rast material in a short segment of the distal right ureter. Please see Dr. Simpson's procedure report for further information.
[2019-01-25] MEDS: Omnipaque 300 MG/ML 50 ML BTL (09:15)
[2019-01-25] MEDS: Lidocaine 2% Jelly 6 ML SYR (09:15)
[2019-01-25] MEDS: Ketorolac 15 MG/ML VIAL IVP (10:14)
--- NOTE | 2019-01-25 12:27 | NUR.NOTE ---
Nursing Note: patient returns from pacu, alert, but still feeling a little groggy from anesthesia... he transfers with assist from the stretcher to the bed. Acute pain is now replaced with a burning in the penile area but is manageable. plan is discussed with the patient who is agreeable, VS taken, he is made comfortable in bed with call bolanos in reach, he is asked to ring for assistance
--- NOTE | 2019-01-25 12:36 | DSE_ITS ---
Date of service: 01/25/19 Time of Service: 12:36 DS: Diagnosis Discharge Diagnosis (1) Renal colic on right side: Status: Acute Discharge Plan Disposition Patient Disposition: HOME Condition: Improving Discharge Details Reason For Visit: RIGHT URETERAL STONE Admit Date/Time: 01/24/19 17:20 Admit Provider: Len Simpson Attending Provider: Len Simpson Primary Care Provider: Kory Morel Hospital Course Hospital Course: The patient was seen in our office late yesterday afternoon. He was so uncomfortable and was unable to tolerate oral pain medications that he was admitted from the office directly. He was treated with hydration and analgesics overnight. He received antiemetics. He was then taken to the operating room on 01/25/2019 where he underwent a cystoscopy and right retrograde pyelogram. We identified a filling defect in the right distal ureter consistent with a stone. We were able to do ureteroscopy and treat the stone with a holmium laser. We then extracted the stone fragments and placed a ureteral stent. After the procedure, his pain and nausea had improved to the point where he is able to be discharged with oral medications. Home Meds and New Rx's Prescriptions: New ciprofloxacin HCl 500 mg tablet 500 mg PO BID Qty: 3 RF: 0 Continued oxycodone 5 mg tablet 5 mg PO Q6H PRN (Reason: pain) Qty: 10 RF: 0 Discharge Instructions Additional Instructions: A follow-up cystoscopy with stent removal and right retrograde pyelogram will be arranged by my office. This will be an outpatient procedure in the operating room. He is instructed not to do any heavy lifting or straining for about 48 hours. After that, he may return to an activity as tolerated. He should not be surprised if he sees blood in the urine or has some discomfort when he voids. All of these symptoms will improve once his stent is removed. After his stent is removed, he should expect a follow-up renal ultrasound about 4 weeks later. Again, this will be arranged by my office. Stand Alone Forms: Nursing Discharge Form Referrals: Len Simpson MD [ [facility] STAFF PHYSICIAN] - Activity:: see above Equipment/Supplies:: No Equipment Needed Diet:: As Tolerated DS: Summary Status at Discharge Functional status at discharge: independent ambulation Overall status at discharge: patient is back to baseline Mental Status: mental status grossly normal Speech and Movement: speech and movement normal Mood: congruent mood Affect: normal affect Exam Narrative Exam Narrative: He is awake and appears much more comfortable that he did on admission His vital signs are documented elsewhere His lungs are clear His abdomen is soft with no masses Cardiac exam shows a regular rate and rhythm Psych Mental Status: mental status grossly normal Speech and Movement: speech and movement normal Mood: congruent mood Affect: normal affect DS: Data Vitals/I&O Vitals and I&O: Vital Signs Temperature 36.5 C 01/25/19 12:18 Temperature Source Tympanic 01/25/19 12:18 Pulse 52 L 01/25/19 12:18 Pulse Rhythm Regular 01/25/19 08:00 Respiratory Rate 12 01/25/19 12:18 Respiratory Effort 01/25/19 08:00 Respiratory Depth Normal 01/25/19 08:00 Respiratory Pattern Normal 01/25/19 08:00 Blood Pressure 144/85 H 01/25/19 12:18 Pulse Oximetry 95 01/25/19 12:18 Respiratory End-tidal CO2 33 01/25/19 10:32 Oxygen Delivery Method Room Air 01/25/19 12:18 Oxygen Flow Rate 0 01/25/19 12:18 Pain Level 4 01/25/19 12:18 Intake & Output 01/24/19 01/25/19 01/25/19 23:59 11:59 23:59 Intake Total 2865 / 2865 Output Total 700 / 700 200 / 1050 850 / 1050 Balance -649 / -649 2665 / 1815 -850 / 1815 Weight 110 kg Intake: IV 2865 / 2865 Output: Urine 700 / 700 200 / 1050 850 / 1050 Other: Urine Color Yellow Yellow Dark Red Urine Appearance Clear Clear Hematuria Clots Urine Odor None None Strong Strain Urine Result Negative-No Stones/Gravel Negative-No Stones/Gravel Comment dark red with several clots Emesis Description None Voiding Methods Urinal Toilet Data Completed and Pending Labs on day of discharge: Labs from last 24 hours 01/24/19 01/24/19 18:32 18:32 WBC 9.79 RBC 4.61 Hgb 14.6 Hct 40.1 MCV 87.0 MCH 31.7 MCHC 36.4 H RDW 11.8 Plt Count 181 MPV 9.9 Immature Gran % 0.2 Neutrophils % 73.7 Lymphocytes % 15.6 Monocytes % 10.1 Eosinophils % 0.3 Basophils % 0.1 Absolute Neutrophils 7.21 H Absolute Lymphocytes 1.53 Absolute Monocytes 0.99 H Absolute Eosinophils 0.03 Absolute Basophils 0.01 Sodium 138 Potassium 4.1 Chloride 103 Carbon Dioxide 24.3 Anion Gap 10.7 BUN 26 H Creatinine 2.14 H D Estimated GFR/1.73 m2 33.43 Glucose 98 Calcium 9.3 Total Bilirubin 0.8 AST 20 ALT 26 Alkaline Phosphatase 51 Total Protein 7.6 Albumin 4.0 PFSH Medical History Adenocarcinoma of appendix (Chronic) 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, 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 Shoulder surgery x2. b. Knee surgery x2. c. Lap right hemicolectomy 01/14/2014 Repair, ACL LEFT Family History Maternal Uncle Colon cancer Father Insomnia Social History Smoking/Tobacco Use Status: Never Alcohol Intake: current Alcohol Intake frequency: a few times a month Alcohol type: wine Drug use: Never Household members: spouse Do you feel safe at home: Yes Do you feel safe in your relationship?: Yes Additional Social history: He is with 4 kids (college to 7th grade). 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 He does not smoke. He drinks ETOH rarely. No illicit drug use.
--- NOTE | 2019-01-25 12:45 | DSE_ITS ---
DS: Diagnosis Discharge Diagnosis (1) Renal colic on right side: Status: Acute Discharge Plan Disposition Patient Disposition: HOME Condition: Improving Discharge Details Reason For Visit: RIGHT URETERAL STONE Admit Date/Time: 01/24/19 17:20 Admit Provider: Len Simpson Attending Provider: Len Simpson Primary Care Provider: Kory Morel Hospital Course Hospital Course: The patient was seen in our office late yesterday afternoon. He was so uncomfortable and was unable to tolerate oral pain medications that he was admitted from the office directly. He was treated with hydration and analgesics overnight. He received antiemetics. He was then taken to the operating room on 01/25/2019 where he underwent a cystoscopy and right retrograde pyelogram. We identified a filling defect in the right distal ureter consistent with a stone. We were able to do ureteroscopy and treat the stone with a holmium laser. We then extracted the stone fragments and placed a ureteral stent. After the procedure, his pain and nausea had improved to the point where he is able to be discharged with oral medications. Home Meds and New Rx's Prescriptions: New ciprofloxacin HCl 500 mg tablet 500 mg PO BID Qty: 3 RF: 0 Continued oxycodone 5 mg tablet 5 mg PO Q6H PRN (Reason: pain) Qty: 10 RF: 0 Discharge Instructions Additional Instructions: A follow-up cystoscopy with stent removal and right retrograde pyelogram will be arranged by my office. This will be an outpatient procedure in the operating room. He is instructed not to do any heavy lifting or straining for about 48 hours. After that, he may return to an activity as tolerated. He should not be surprised if he sees blood in the urine or has some discomfort when he voids. All of these symptoms will improve once his stent is removed. After his stent is removed, he should expect a follow-up renal ultrasound about 4 weeks later. Again, this will be arranged by my office. Stand Alone Forms: Nursing Discharge Form Referrals: Len Simpson MD [ [facility] STAFF PHYSICIAN] - Activity:: see above Equipment/Supplies:: No Equipment Needed Diet:: As Tolerated Discharge Orders Discharge Orders: Discharge Order (Routine); Ordered 01/25/19 Ordered By: Len Simpson Discharge Data Discharge Comment: Only discharge if patient is tolerating PO DS: Summary Status at Discharge Functional status at discharge: independent ambulation Overall status at discharge: patient is back to baseline Mental Status: mental status grossly normal Speech and Movement: speech and movement normal Mood: congruent mood Affect: normal affect Exam Psych Mental Status: mental status grossly normal Speech and Movement: speech and movement normal Mood: congruent mood Affect: normal affect DS: Data Vitals/I&O Vitals and I&O: Vital Signs Temperature 36.5 C 01/25/19 12:18 Temperature Source Tympanic 01/25/19 12:18 Pulse 52 L 01/25/19 12:18 Pulse Rhythm Regular 01/25/19 08:00 Respiratory Rate 12 01/25/19 12:18 Respiratory Effort 01/25/19 08:00 Respiratory Depth Normal 01/25/19 08:00 Respiratory Pattern Normal 01/25/19 08:00 Blood Pressure 144/85 H 01/25/19 12:18 Pulse Oximetry 95 01/25/19 12:18 Respiratory End-tidal CO2 33 01/25/19 10:32 Oxygen Delivery Method Room Air 01/25/19 12:18 Oxygen Flow Rate 0 01/25/19 12:18 Pain Level 4 01/25/19 12:18 Intake & Output 01/24/19 01/25/19 01/25/19 23:59 11:59 23:59 Intake Total 51 / 51 2865 / 2865 Output Total 700 / 700 200 / 1050 850 / 1050 Balance -649 / -649 2665 / 1815 -850 / 1815 Weight 110 kg Intake: IV 51 / 51 2865 / 2865 Output: Urine 700 / 700 200 / 1050 850 / 1050 Other: Urine Color Yellow Yellow Dark Red Urine Appearance Clear Clear Hematuria Clots Urine Odor None None Strong Strain Urine Result Negative-No Stones/Gravel Negative-No Stones/Gravel Comment dark red with several clots Emesis Description None Voiding Methods Urinal Toilet Data Completed and Pending Labs on day of discharge: Labs from last 24 hours 01/24/19 01/24/19 18:32 18:32 WBC 9.79 RBC 4.61 Hgb 14.6 Hct 40.1 MCV 87.0 MCH 31.7 MCHC 36.4 H RDW 11.8 Plt Count 181 MPV 9.9 Immature Gran % 0.2 Neutrophils % 73.7 Lymphocytes % 15.6 Monocytes % 10.1 Eosinophils % 0.3 Basophils % 0.1 Absolute Neutrophils 7.21 H Absolute Lymphocytes 1.53 Absolute Monocytes 0.99 H Absolute Eosinophils 0.03 Absolute Basophils 0.01 Sodium 138 Potassium 4.1 Chloride 103 Carbon Dioxide 24.3 Anion Gap 10.7 BUN 26 H Creatinine 2.14 H D Estimated GFR/1.73 m2 33.43 Glucose 98 Calcium 9.3 Total Bilirubin 0.8 AST 20 ALT 26 Alkaline Phosphatase 51 Total Protein 7.6 Albumin 4.0 PFSH Medical History Adenocarcinoma of appendix (Chronic) 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 epilepsy, 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 Shoulder surgery x2. b. Knee surgery x2. c. Lap right hemicolectomy 01/14/2014 Repair, ACL LEFT Family History Maternal Uncle Colon cancer Father Insomnia Social History Smoking/Tobacco Use Status: Never Alcohol Intake: current Alcohol Intake frequency: a few times a month Alcohol type: wine Drug use: Never Household members: spouse Do you feel safe at home: Yes Do you feel safe in your relationship?: Yes Additional Social history: He is with 4 kids (college to 7th grade). He is the Jour[employer]. He does not smoke. He drinks ETOH rarely. No illicit drug use.
--- NOTE | 2019-01-25 13:16 | ROE_ITS ---
DATE OF PROCEDURE: January 25, 2019 PREOPERATIVE DIAGNOSIS: Right ureteral stone. POSTOPERATIVE DIAGNOSIS: Right ureteral stone. PROCEDURE: Cystoscopy; right retrograde pyelogram; right ureteroscopy; holmium laser of right distal ureteral stone; extraction of stone fragments; insert right ureteral stent. SURGEON: Len Simpson M.D. ANESTHESIA: General. COMPLICATIONS: None. ESTIMATED BLOOD LOSS: Minimal. FINDINGS: Right distal ureteral stone. HISTORY: This is a 48-year-old gentleman who has a past history of kidney stones. He also has a his tory of left renal cell carcinoma which was treated with a partial nephrectomy. He presented to the Emergency Room earlier this week with right-sided pain. He was discharged with o ral analgesics, but within the last 24 hours he has had worsening pain, nausea and vomiting. He was admitted last evening for hydration and analgesia. He is brought to the Operating Room today for sto ne manipulation. OPERATIVE REPORT: The patient was brought to the Operating Room on 01/25/19. After successful induct ion of general anesthesia, he was placed in the dorsal lithotomy position. His genitalia was prepped and draped sterilely. A 22 Trinidadian rigid cystoscope was passed through the urethra into the bladder. The urethra and bladde r were inspected with a 30-degree lens. The pendulous, bulbous and membranous urethras appeared normal. The prostatic urethra showed some la teral lobe enlargement, but no significant median lobe. The bladder neck was entered and the bladder mucosa was inspected. Both ureteral orifices appeared normal. No stone was seen within the lumen of the bladder. The right orifice was cannulated with a 6 Trinidadian access catheter. A retrograde film was obtained by injecting Omnipaque through the access catheter under fluoroscopic guidance. Within the distal 1 to 2 cm or the ureter a filling defect was identified. The ureter above this lev el was quite dilated. I then passed a Guidewire through the access catheter and maneuvered it above the level of the stone. We removed the access catheter and cystoscope. The semi-rigid ureteroscope was then introduced through the urethra into the bladder. I was able to engage the scope into the right ureteral orifice and maneuver the scope up until a stone was visualiz ed. The stone appeared too large to grasp within a stone basket, so we used a 365 micron holmium las er fiber to fracture the stone in two. We used a power setting of 800 and a rate of 8. We were then able to grasp each of the two fragments in a Verna stone basket and remove them in their entirety. The scope was then reintroduced and no additional stone fragments were seen. Each of the stone fragments was then sent for chemical analysis. Because of the increased serum creatinine we elected to place a ureteral stent. We chose a 4.8 Frenc h variable-length stent and advanced it over the wire until the proximal end was within the kidney an d the distal end was within the bladder. The safety string had been removed. The position of the st ent was confirmed both fluoroscopically and cystoscopically. The patient tolerated this procedure well. There were no complications. We will plan on removing hi s stent in approximately one week. We will recheck his serum creatinine at that time as well.
== END 2019-01-25 14:01 | disposition home or self-care (01) ==
PROVIDERS: Admitting Provider Urology; PCP Emergency Medicine; Visit Provider Urology
PROC: 0TF38ZZ Fragmentation in Right Kidney Pelvis, Via Natural or Artificial Opening Endoscopic (ICD-10-PCS; CPT 52356; principal; 2019-01-25 08:45)
DX: N20.1 Calculus of ureter (principal); E86.0 Dehydration; Z87.442 Personal history of urinary calculi; R79.89 Other specified abnormal findings of blood chemistry; Z85.528 Personal history of other malignant neoplasm of kidney; Z90.5 Acquired absence of kidney
CPT/HCPCS: 52356; 36415; 80053; 99217; 99218; 99225; NC; 74430; 85025; G0378; J0690; J1100; J1885; J2405; Q9967

== ENCOUNTER 2019-01-25 13:24 | Outpatient (REF) | payer BC, SELFPAY ==
[2019-01-30 15:07] LABS: Source: Right Ureter
== END 2019-01-25 13:44 ==
LOC: LBN 13:24
PROVIDERS: PCP Emergency Medicine; Visit Provider Urology
DX: N20.0 Calculus of kidney (principal)
CPT/HCPCS: 82365

== ENCOUNTER 2019-01-28 08:19 | Day surgery (SDC) | payer BC, SELFPAY ==
[2019-01-28 08:47] VITALS: BP 144/100; PULSE 55; RESP 16; TEMP 36.1; O2SAT 96
--- NOTE | 2019-01-28 09:02 | W.PM.HP.N ---
Date of service: 01/28/19 Assessment and Plan Assessment and plan (1) Right distal ureteral calculus: Status: Acute Assessment and plan: We will remove his stent and do a retrograde pyelogram to insure his ureter is patent and no additional stones are present. History of Present Illness History of Present Illness Chief Complaint: Right Ureteral stone Narrative: This is a 48 year old man who developed renal colic last week. He underwent ureteroscopy with holmium laser lithotripsy and stone extraction. We left a ureteral stent in place. He presents for cystoscopy, stent removal and retrograde pyelogram to insure additional stones are not present. Prior to his surgery, he had an increase in his serum creatinine. We will recheck his his creatinine preoperatively. Review of Systems Review of Systems Narrative: No fevers or chills No vision change or dysphasia No diabetes or thyroid No shortness of breath, cough or hemoptysis No chest pain or palpitations Hx appendiceal cancer No seizures, strokes or peripheral neuropathy No bleeding disorders or anemia No gout or arthralgia PFSH Social History Smoking/Tobacco Use Status: Never Alcohol Intake: current Alcohol Intake frequency: holidays/special occasions only Drug use: Never Substance use type: does not use Details: alcohol: t-10 Household members: spouse Do you feel safe at home: Yes Do you feel safe in your relationship?: Yes Additional Social history: He is with 4 kids (college to 7th grade). 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 He does not smoke. He drinks ETOH rarely. No illicit drug use. Meds Home Medications and Allergies Home Medications Medication Instructions Recorded Confirmed Type oxycodone 5 mg PO Q6H PRN #10 tab 01/22/19 01/28/19 Rx ciprofloxacin HCl 500 mg PO BID #3 tab 01/25/19 01/28/19 Rx Allergies Allergy/AdvReac Type Severity Reaction Status Date / Time rofecoxib [From Vioxx] AdvReac ESOPHIGITIS Verified 01/28/19 08:38 anesthesia AdvReac Nausea Uncoded 01/28/19 08:38 Exam Narrative Exam Narrative: He looks comfortable His vital signs are documented elsewhere in the chart His neck is supple His lungs are clear Cardiac exam shows a regular rate and rhythm His abdomen is soft with no mass He is awake and alert Results Labs Result diagrams: 01/28/19 09:10 Last Vital Signs Temp 36.1 C L 01/28/19 08:47 Pulse 55 L 01/28/19 08:47 Resp 16 01/28/19 08:47 BP 144/100 H 01/28/19 08:47 Pulse Ox 96 01/28/19 08:47
[2019-01-28 09:22] VITALS: BP 144/100; PULSE 55; RESP 16; TEMP 36.1; O2SAT 96
[2019-01-28 09:24] LABS: CREATININE 1.17 mg/dL (0.70-1.30)
[2019-01-28] MEDS: Lactated Ringers 1,000 ML 80 ML IV (09:30)
--- NOTE | 2019-01-28 11:05 | DI.RAD_ITS ---
EXAM: XR RETROGRADE IN OR CLINICAL HISTORY: right distal ureteral calculus. TECHNIQUE: 2D and realtime digital imaging was performed. COMPARISON: No exams were available for comparison FINDINGS: Dr. Simpson carried out a right retrograde examination in conjunction with removal of a distal right ur eteral calculus. Please see the operative report for further information.
[2019-01-28] MEDS: ceFAZolin 2 GM/50 ML BAG IVPB (11:35)
[2019-01-28] MEDS: Omnipaque 300 MG/ML 50 ML BTL (12:00)
--- NOTE | 2019-01-28 12:12 | W.PM.DSUDISC ---
Discharge Plan Disposition Patient Disposition: HOME Condition: Stable Discharge Details Reason For Visit: (R) URETERAL STONE Attending Provider: Len Simpson Primary Care Provider: Kory Morel Home Meds and New Rx's Prescriptions: No Action oxycodone 5 mg tablet 5 mg PO Q6H PRN (Reason: pain) Qty: 10 RF: 0 ciprofloxacin HCl 500 mg tablet 500 mg PO BID Qty: 3 RF: 0 Discharge Instructions Additional Instructions: Followup visit 4 to 6 weeks with renal US day of appointment Activity:: Activity as Tolerated Shower/Bathe:: 24 hours Diet:: As Tolerated Discharge Orders Discharge Orders: Discharge Order (Routine); Ordered 01/28/19 Ordered By: Len Simpson DS: Diagnosis Discharge Diagnosis (1) Right distal ureteral calculus: Status: Acute
[2019-01-28 12:55] VITALS: BP 133/88; PULSE 45; RESP 16; TEMP 36.2; O2SAT 97
[2019-01-28] MEDS: Tamsulosin 0.4 MG CAPCR PO (13:00)
[2019-01-28] MEDS: Phenazopyridine 200 MG TAB PO (13:01)
[2019-01-28 13:42] VITALS: BP 134/87; PULSE 60; RESP 16; TEMP 36.5; O2SAT 96
--- NOTE | 2019-01-28 14:38 | ROE_ITS ---
DATE OF PROCEDURE: January 28, 2019 PREOPERATIVE DIAGNOSIS: Right ureteral stone. POSTOPERATIVE DIAGNOSIS: Right ureteral stone. PROCEDURE: Cystoscopy; remove right ureteral stent; right retrograde pyelogram. SURGEON: Len Simpson M.D. ANESTHESIA: Room air general anesthetic with local. COMPLICATIONS: None. HISTORY: This is a 48-year-old gentleman who was seen late last week with renal colic. He was ident ified as having a right distal ureteral stone and he was treated with ureteroscopy and holmium laser of the stone. We were able to remove the stone in two separate fragments. He does have a history of renal cell carcinoma and had a left partial nephrectomy. Before his surger y last week, his renal function showed a significant worsening. We elected to place a ureteral stent after his stone manipulation. He presents today to have his creatinine rechecked and to have his stent removed. We will plan on do ing a retrograde pyelogram to ensure there is no ureteral injury. OPERATIVE REPORT: The patient was brought to the Operating Room on 01/17/19. Before coming to the op erating room, a preop creatinine was drawn. His creatinine level was back to baseline. He was given general anesthesia by room air. His genitalia was then prepped and draped. 2% Xylocain e jelly was instilled into the urethra to act as a local anesthetic. A 22 Belarusian rigid cystoscope was passed through the urethra into the bladder. The urethra and bladde r were inspected with a 30-degree lens. The pendulous, bulbous and membranous urethras all appeared normal with no strictures. The prostatic urethra showed slight lateral lobe enlargement, but no significant median lobe. The bladder neck was entered and the stent could be seen protruding from the right ureteral orifice. The stent was grasped with alligator forceps and brought to the level of the urethral meatus. A Glidewire was then advanced through the lumen of the stent and the stent was removed, leaving the w olivia in place. A 6 Belarusian access catheter was then advanced over the wire. The wire was then removed . A retrograde pyelogram was obtained by injecting Omnipaque through that access catheter under fluoros copic guidance. No ureteral leak or residual filling defect was identified. The access catheter was removed and the ureter appeared to drain promptly. The patient tolerated this procedure well. There were no complications. He will be scheduled for a follow-up renal ultrasound in 4 to 6 weeks. cc: Kory Morel D.O.
== END 2019-01-28 13:59 | disposition home or self-care (01) ==
PROVIDERS: PCP Emergency Medicine; Visit Provider Urology
PROC: (CPT 74450; principal; 2019-01-28 10:30)
DX: N20.1 Calculus of ureter (principal); Z96.0 Presence of urogenital implants; Z85.528 Personal history of other malignant neoplasm of kidney; Z90.5 Acquired absence of kidney
CPT/HCPCS: 52310; 36415; NC; 74420; 82565; J0690; J1100; J1200; J1885; J2250; J2405; Q9967

== ENCOUNTER 2019-03-11 01:26 | Outpatient (CLI) | payer BC, SELFPAY ==
--- NOTE | 2019-03-11 13:58 | DI.US_ITS ---
EXAM: US RENAL CLINICAL HISTORY: r/o hydronephrosis N20.1 CALCULUS OF URETER TECHNIQUE: Ultrasound performed using standard protocol. COMPARISON: 04/24/2017 FINDINGS: The right kidney measures 12.0 cm in length. The left kidney measures 10.8 cm in length. There is n o evidence of hydronephrosis. No calculi are identified. The parenchymal thickness and echogenicity appear normal. There are no perinephric collections. The prevoid bladder volume measured 33 cc. T here is a 3 cc postvoid residual. No bladder calculi or wall thickening is seen. The prostate volum e is 37 cc. IMPRESSION: No residual hydronephrosis or visible renal calculi.
== END 2019-03-11 01:46 ==
PROVIDERS: PCP Emergency Medicine; Visit Provider Urology
DX: N20.1 Calculus of ureter (principal)
CPT/HCPCS: 76770

== ENCOUNTER 2020-01-16 07:59 | Emergency (ER) | payer BC, SELFPAY ==
[2020-01-16 08:07] VITALS: BP 143/95; PULSE 50; RESP 16; TEMP 36.6; O2SAT 100
--- NOTE | 2020-01-16 08:15 | DI.CT_ITS ---
EXAM: CT BRAIN CTA CLINICAL HISTORY: intermittent severe frontal headaches. TECHNIQUE: Imaging Protocol: Axial CT angiography was performed with multi-slice acquisition and mu lti-planar and/or 3D reconstructions. CONTRAST MATERIAL: Intravenous: Omnipaque 350 Contrast volume:structured data in ml COMPARISON: MR MRI - BRAIN W/WO CONTRAST from 12/11/2017 FINDINGS: CT Head W/O: Ventricles and Extra axial spaces: Normal in size and morphology for the patient's age. Hemorrhage: None. Cerebral parenchyma: Normal. Midline shift: None. Brainstem/Cerebellum: Normal. Calvarium: Normal. Visualized Paranasal sinuses/Mastoids: Mucous retention cysts at the floors of both maxillary sinuses , sinuses and mastoids otherwise clear. Soft Tissues: Unremarkable. CTA Brain W: Internal Carotid Arteries: Petrous: Normal. Cavernous: Normal. Cerebral: Normal. Middle Cerebral Arteries: Right: No aneurysm, occlusion or significant stenosis. Left: No aneurysm, occlusion or significant stenosis. Anterior Cerebral Arteries: Right: No aneurysm, occlusion or significant stenosis. Left: No aneurysm, occlusion or significant stenosis. Posterior cerebral Arteries: Right: No aneurysm, occlusion or significant stenosis. Left: No aneurysm, occlusion or significant stenosis. Vertebral Arteries: Right: No aneurysm, occlusion or significant stenosis. Left: No aneurysm, occlusion or significant stenosis. Basilar Artery: No aneurysm, occlusion or significant stenosis. IMPRESSION: 1. Normal CTA examination of the [place]. 2. Unremarkable noncontrast CT Head. RADIATION DOSE DELIVERED: Total DLP Total DLP DATA REPOSITORY: All CT scans at this facility are submitted to the National Radiology Data Registry (NRDR) Dose Index Registry (DIR) with the [employer] (ACR). RADIATION OPTIMIZATION: All CT scans at this facility use at least one of these dose optimization te chniques: automated exposure control; mA and/or kV adjustment per patient size (includes targeted exa ms where dose is matched to clinical indication); or iterative reconstruction.
--- NOTE | 2020-01-16 08:27 | ED.GENADUL_ITS ---
Discharge Plan Disposition Patient Disposition: HOME Condition: Stable Discharge Details Clinical Impression: Headache Primary Care Provider: Kory Morel ED Provider: Jose Rafael Adams Home Meds and New Rx's Prescriptions: Continued clonazepam 1 mg tablet 1 mg PO QHS Qty: 90 RF: 2 ibuprofen [IBU-200] 200 mg Tablet 800 mg PO Q6H PRNRF: 0 Discharge Instructions Instructions: Acute Headache (DC) Additional Instructions: your blood work and cat scan did not show any concerning findings you can take 1000mg tylenol and 600mg ibuprofen every 6 hours for pain as needed I placed you on our follow up list to see neurology return to the emergency department if you have severe worsening pain, fevers or feel more ill Medical Decision Making 49 yo male with 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 He states he gets waves of severe 10/10 head pain that lasts a few hours, currently has a dull 2/10 pain and he can't think of anything that makes the pain better or worse. No fevers, vomit, chest pain, abdominal pain. He has a stable gait, caox4 with no focal motor or sensation deficits and clear speech, perrl, CN II- XII are intact. 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 Given his history and degree of pain will obtain ct and cta to evaluate for mass, ich, and aneurysm and monitor. Has no findings to suggest cavernous sinus thombosis or cerebral venous thrombosis. pt remains stable, no menigismus and still normal neurological exam. Negative imaging. He has mild pain now. I suspect cluster headaches. Will have him f/u with neurology and return precautions given. HE requests covid testing as well which was done prior to discharge Differential Diagnosis Differential Diagnosis: tumor, cluster headache, migraine, aneurysm Imaging Data Radiologic Study: Attestation: I personally reviewed and interpreted this imaging study as follows: Imaging: CT Scan Radiologist's impression: negative ct and cta Lab Data Lab results reviewed: Yes I reviewed the patient's lab results. HPI General Mode of arrival: ambulatory . Date/Time Provider Initiated Documentation: 01/16/20 08:10 . Limitations to Documentation: no limitations . Information obtained by: patient . History of Present Illness 49 year old M presents to the emergency department with the chief complaint of headache, described as severe, with intensity rated at 10. Quality is described as crushing, Patient started experiencing this day(s) (6) and it has been intermittent. No relieving factors improve symptom(s), No exacerbating factors reported . Patient notes no other symptoms.. Patient did receive the following treatments prior to arrival, none Related Data Home Medications Medication Instructions Recorded Confirmed clonazepam 1 mg tablet 1 mg PO QHS #90 tab 11/09/19 01/16/20 ibuprofen [IBU-200] 800 mg PO Q6H PRN 01/16/20 01/16/20 Previous Rx's Medication Instructions Recorded clonazepam 1 mg tablet 1 mg PO QHS #90 tab 11/09/19 Allergies Allergy/AdvReac Type Severity Reaction Status Date / Time rofecoxib [From Vioxx] AdvReac ESOPHIGITIS Verified 01/16/20 08:33 anesthesia AdvReac Nausea Uncoded 01/16/20 08:33 General Stated Complaint: Headache SAUL: 2 Review of Systems All systems reviewed & are unremarkable except as noted in HPI and below Constitutional Constitutional: Denies chills, Denies fever(s) and Denies weakness Eyes Eyes: Denies loss of vision Cardiovascular Cardiovascular: Denies chest pain and Denies dyspnea Respiratory Respiratory: Denies cough and Denies dyspnea Gastrointestinal Gastrointestinal: Denies abdominal pain, Denies nausea and Denies vomiting Musculoskeletal Musculoskeletal: Denies joint swelling Neurologic Neurologic: Denies loss of vision and Denies weakness ON LICENSE OF [facility] Medical History (Updated 01/16/20 @ 09:59 by Jose Rafael Adams MD) 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 epilepsy, 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 Shoulder surgery x2. b. Knee surgery x2. c. Lap right hemicolectomy 01/14/2014 Hx of cystoscopy Repair, ACL LEFT,pt. reports R also Family History Maternal Uncle Colon cancer Father Insomnia Social History Smoking/Tobacco Use Status: Never Alcohol Intake: current Alcohol Intake frequency: holidays/special occasions only Drug use: Never Substance use type: does not use Household members: spouse Do you feel safe at home: Yes Do you feel safe in your relationship?: Yes Additional Social history: He is with 4 kids (college to 7th grade). 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 He does not smoke. He drinks ETOH rarely. No illicit drug use. Exam Const General: no acute distress Orientation: alert HENMT Head: normal to inspection Ears: external ears normal General nose exam: external nose normal Mouth: moist mucous membranes Eyes General: appearance normal, both eyes and all related structures Neck Neck: normal visual inspection Resp Effort & Inspection: normal respiratory effort and able to speak in complete sentences Cardio Rate: regular rate Skin General skin exam: no rashes or lesions noted Neuro General: patient alert and patient oriented x3 Extrem General: normal to inspection Psych Mental Status: mental status grossly normal Course Vital Signs Vital signs: Vital Signs Temperature 36.6 C 01/16/20 08:07 Pulse 50 L 01/16/20 08:07 Respiratory Rate 16 01/16/20 08:07 Blood Pressure 143/95 H 01/16/20 08:07 Pulse Oximetry 100 01/16/20 08:07 Temperature 36.6 C 01/16/20 08:07 Temperature Source Temporal Artery Scan 01/16/20 08:07 Pulse 50 L 01/16/20 08:07 Respiratory Rate 16 01/16/20 08:07 Respiratory Effort Non-Labored 01/16/20 08:11 Blood Pressure 143/95 H 01/16/20 08:07 Blood Pressure Position Sitting 01/16/20 08:07 Pulse Oximetry 100 01/16/20 08:07 Oxygen Delivery Method Room Air 01/16/20 08:07 Oxygen Flow Rate 0 01/16/20 08:07 Pain Level 3 01/16/20 08:12
[2020-01-16 08:47] LABS: Abs Immature Grans 0.02 10^3/uL (0.0-0.06); Absolute Basophil Count 0.04 10^3/uL (0.0-0.2); Absolute Eosinophil Count 0.11 10^3/uL (0.0-0.7); Absolute Lymphocyte Count 2.71 10^3/uL (1.2-3.4); Absolute Monocyte Count 0.64 10^3/uL (0.1-0.8); Absolute Neutrophil Count 3.19 10^3/uL (1.2-6.7); Basophils % 0.6; Eosinophils % 1.6; HCT 39.9 % (40.0-50.0); HGB 14.3 g/dL (13.5-17.5); Immature Grans % 0.3; Lymphocytes % 40.4; MCH 30.9 pg (27.0-33.0); MCHC 35.8 % (32.0-36.0); MCV 86.2 fL (80-95); MPV 9.6 fL (8.0-11.0); Monocytes % 9.5; Neutrophils % 47.6; Nucleated RBC 0 %; Platelet Count 206 10^3/uL (130-400); RBC 4.63 10^6/uL (4.36-5.78); RDW 11.9 % (11.8-14.1); RDW-SD 37.2 fL; WBC 6.71 10^3/uL (4.4-10.8)
[2020-01-16 09:02] LABS: ALT 46 U/L (16-63); AST 32 U/L (15-37); Albumin 4.1 g/dL (3.4-5.0); Alkaline Phosphatase 42 U/L (46-116); Anion Gap 8.5 mmol/L (3-11); BUN 16 mg/dL (7-18); Bilirubin, Total 0.6 mg/dL (0.2-1.0); CO2 26.5 mmol/L (21.0-32.0); CREATININE 1.28 mg/dL (0.70-1.30); Calcium 9.4 mg/dL (8.5-10.1); Chloride 104 mmol/L (98-107); Glucose 90 mg/dL (74-106); Potassium 4.1 mmol/L (3.5-5.1); Sodium 139 mmol/L (136-145); Total Protein 7.4 g/dL (6.4-8.2)
[2020-01-16] MEDS: Omnipaque 350 MG/ML 100 ML BTL IJ (09:02)
[2020-01-16] MEDS: Normal Saline - Diluent 50 ML VIAL IV (09:02)
[2020-01-16 09:22] VITALS: BP 145/96; PULSE 57; RESP 16; TEMP 36.8; O2SAT 100
[2020-01-16 09:36] LABS: ESR 6 mm/hr (0-15)
[2020-01-16 10:01] VITALS: BP 147/95; PULSE 46; RESP 16; TEMP 37; O2SAT 99
--- NOTE | 2020-01-16 12:15 | NUR.NOTE ---
Nursing Note: Referral faxed to [facility] Neurology for follow up. Kimmie Hinkle
[2020-01-18 07:46] LABS: Patient Race White; SARS-CoV-2 RNA Undetected (Undetected); SARS-CoV-2 Specimen Source Nasopharynx
--- NOTE | 2020-01-18 16:23 | NUR.NOTE ---
Patient contacted via telephone at this time to report negative COVID testing. Patient states understanding of results and agreeable to follow up with PCP and to return to ED for any worsening of symptoms. Nursing Note:
== END 2020-01-16 10:04 | disposition home or self-care (01) ==
PROVIDERS: Emergency Provider Emergency Medicine; PCP Emergency Medicine
DX: R51 Headache (principal); C64.9 Malignant neoplasm of unspecified kidney, except renal pelvis; C18.1 Malignant neoplasm of appendix; Z11.59 Encounter for screening for other viral diseases
CPT/HCPCS: 70496; 80053; 85652; 99285; U0003; 85025; 99284; J3490

== ENCOUNTER 2020-06-04 01:21 | Outpatient (CLI) | payer BC, SELFPAY ==
[2020-06-04] MEDS: Omnipaque 350 MG/ML 50 ML BTL PO (07:53)
[2020-06-04 08:02] LABS: CREATININE 1.28 mg/dL (0.70-1.30); Estimated GFR 59.98 (mL/min/1.73m2)
[2020-06-04] MEDS: Omnipaque 350 MG/ML 100 ML BTL IJ (08:51)
--- NOTE | 2020-06-04 09:10 | DI.CT_ITS ---
EXAM: CT ABDOMEN PELVIS W CLINICAL HISTORY: Adenocarcinoma of the appendix,renal cell ca,c64.9,c18.1. TECHNIQUE: Imaging Protocol: Axial computed tomography images with coronal and sagittal reformatted images were created and reviewed CONTRAST MATERIAL: Intravenous: Omnipaque 100cc Oral: None COMPARISON: CT CT renal colic wo from 01/23/[address] BRAIN CTA from 01/16/2020 FINDINGS: VISUALIZED LUNG BASES: Uppermost images reveal a 3 millimeters subpleural nodule in the anterior basa l segment of the right lower lobe. The prior 2018 CT scan did not include this region.. In the oppo site-left lung base there is a 4 millimeter pleural-based nodule which is in the lateral basal segmen t and unchanged from January 2018 and therefore benign. There are no pleural effusions. ABDOMEN: There is no ascites. LIVER: Hepatic steatosis is again noted. There are no discrete focal hepatic lesions no dilatation o f intrahepatic ducts. GALLBLADDER/BILIARY: No obvious gallbladder pathology. CBD is not dilated. PANCREAS: No evidence of pancreatic mass nor dilatation of the pancreatic duct. SPLEEN: Spleen is not enlarged. No obvious intrasplenic lesions. Splenic and portal veins are paten t. ADRENALS: There are no significant adrenal masses. KIDNEYS:Right kidney appears unremarkable with the exception of a tiny nonobstructive calculus-20 no solid renal masses. No calculi nor hydronephrosis.. ABDOMINAL AORTA: Abdominal aorta is not enlarged and there is no epxfudxoncefnai-svgm-rupall adenopat hy. ABDOMINAL WALL/GI: No evidence of significant anterior abdominal wall hernia. No bowel obstruction. PELVIS: GI: No evidence of appendicitis.No evidence of sigmoid diverticulitis. LYMPH NODES: There is no intrapelvic nor inguinal adenopathy. REPRODUCTIVE: URINARY BLADDER: No calculi nor obvious masses evident OSSEOUS: No significant osseous lesions. IMPRESSION: 1. 2. 3. 4. RADIATION DOSE DELIVERED: 2,682.43mGy.cm Total DLP DATA REPOSITORY: All CT scans at this facility are submitted to the National Radiology Data Registry (NRDR) Dose Index Registry (DIR) with the [employer] (ACR). RADIATION OPTIMIZATION: All CT scans at this facility use at least one of these dose optimization te chniques: automated exposure control; mA and/or kV adjustment per patient size (includes targeted exa ms where dose is matched to clinical indication); or iterative reconstruction.
[2020-06-04] MEDS: Normal Saline - Diluent 50 ML VIAL IV (09:11)
[2020-06-04] MEDS: Normal Saline Flush 10 ML SYR IVP (09:12)
[2020-06-04 17:32] LABS: CEA 3.7 ng/mL (See Note)
== END 2020-06-04 01:41 ==
PROVIDERS: PCP Emergency Medicine; Visit Provider Emergency Medicine
DX: C64.9 Malignant neoplasm of unspecified kidney, except renal pelvis (principal); C18.1 Malignant neoplasm of appendix; K76.0 Fatty (change of) liver, not elsewhere classified
CPT/HCPCS: 74177; 82378; 82565; J3490; Q9967

== ENCOUNTER 2020-06-09 02:27 | Outpatient (CLI) | payer BC, SELFPAY ==
[2020-06-10 12:33] LABS: COVID-19 RT-PCR UVMMC Result Negative (Negative)
== END 2020-06-09 02:28 | disposition home or self-care (01) ==
LOC: LBO 02:27
PROVIDERS: PCP Emergency Medicine; Visit Provider Surgery
DX: Z11.52 Encounter for screening for COVID-19 (principal); Z01.818 Encounter for other preprocedural examination
CPT/HCPCS: U0003

== ENCOUNTER 2020-06-12 10:19 | Day surgery (SDC) | payer BC, SELFPAY ==
[2020-06-12 10:30] VITALS: BP 143/95; PULSE 68; RESP 18; TEMP 37.1; O2SAT 99
[2020-06-12] MEDS: Lactated Ringers 1,000 ML 80 ML IV (11:06)
--- NOTE | 2020-06-12 11:41 | BOWEL_PTH ---
PATIENT: Mary Alice Joyce LOC: [facility] U#:[id number] AGE/SX: 50/M ROOM: RE06/12/[address]: Evangelina Diamond : 1970 BED: DIS: 06/12/2020 SPEC #: [id number] RECD: 06/12/20 12:46 STATUS: HILL REQ #: [id number] CHRISTIAN: 06/12/20 11:[address]: Evangelina Diamond DEPT: Surgical Specimen RECD BY: Kasia Fernando ENTERED: 06/12/20 12:47 SP TYPE: Bowel OTHR DR: Kory Morel DO Tissues: 1 - BIOPSY BOWEL Procedures: GROSS AND MICRO LEVEL 4 Comments: [id number]
--- NOTE | 2020-06-12 11:49 | W.COLOREPORT ---
Date of service: 06/12/20 Time of Service: 11:49 Colonoscopy Report Date of procedure: 06/12/20 Pre-op diagnosis general: adenocarcinoma of appendix and A. polyps of colon Post-op diagnosis procedure note: other Procedure: CE w/ Bx Surgeon: Evangelina Diamond Anesthesia proc note operative: MAC Estimated blood loss (mL): 0 Pathology: other Complications: None Disposition: same day Prep: Miralax/Dulcolax Retraction Time: 8mins Procedure Description: After informed consent was obtained the patient was taken to the procedure room and placed in a left decubitous position. Monitors were applied and a time out was done. The patients name, date of , procedure, allergies to medications and metal in their body was reviewed. The patient was then sedated. Once sedated and comfortable a rectal exam was done. External exam was normal. Internal exam revealed a normal sphincter tone and no palpable masses. The scope was then introduced and retrofelexed. No internal hemorrhoids were identified. The scope was then advanced to the ileal-colic anastomosis. The prep was good. The scope was then slowly retracted over 8 minutes back into the rectum. The anastomosis is appreciated. It is widely patent. There are no ulcerations. Biopsies are taken. There are no polyps, AVMs, or diverticula visualized. The mucosa appears pink and healthy. The scope was removed and the patient was woken up and taken back to Same day surgery in stable condition. The patient tolerated the procedure well and there were no immediate complications. Follow up: The patient should follow up in 5 years unless they develop changes in bowel habits or other new gastrointestinal complaints.
--- NOTE | 2020-06-12 11:50 | W.PM.DSUDISC ---
Discharge Plan Disposition Patient Disposition: HOME Condition: Good Discharge Details Reason For Visit: colon scope Attending Provider: Evangelina Diamond Primary Care Provider: Kory Morel Home Meds and New Rx's Prescriptions: Continued clonazepam 1 mg tablet 1 mg PO QHS Qty: 90 RF: 2 ibuprofen [IBU-200] 200 mg Tablet 800 mg PO Q6H PRNRF: 0 Discontinued polyethylene glycol 3350 17 gram/dose powder 238 g PO ONCE Qty: 238 RF: 0 bisacodyl [Dulcolax (bisacodyl)] 5 mg tablet,delayed release (DR/EC) 5 mg PO ONCE Qty: 4 RF: 0 Discharge Instructions Additional Instructions: Findings:Normal today Follow up: repeat C. scope in 5yrs time, or if changes in bowels habits, persistent rectal bleeding, or unexplained weight loss. Please call if you develop: fevers >101.5 Nausea or Vomiting Abdominal pain that is not transient DAY SURGERY UNIT POST COLONOSCOPY INSTRUCTIONS 1. Because there will be medication in your system for the next 24 hours, you may feel a little sleepy. Your coordination will be affected. Therefore: a. Do not drive or operate dangerous equipment for 24 hours. b. Do not drink alcohol beverages for 24 hours (not even beer). c. Plan to go home and rest for the day. 2. Generally there are no restrictions on your activity after a day or so has gone by, but you may feel a bit fatigued for a few days. 3 After you arrive home you may have a light meal and return to a normal diet as you can tolerate it without feeling sick to your stomach. 4. After surgery, you may feel pain or discomfort. This should be only transient, but if it persists please contact your doctor. 5. If there are any questions regarding the findings of your procedure, please feel free to contact your doctor. 6. If you are unable to contact your doctor with a problem, contact the hospital at [phone]. 7. Continue all your regular medications unless directed otherwise. I understand the above instructions and have no questions. Signature of Patient or Responsible Adult Escort Date/Time Name of Responsible Adult Escort Signature of Nurse Date/Time Activity:: No lifting over 20 pounds or strenuous activity x24 hours. Diet:: Small light meals x24 hours patient Discharge Orders Discharge Orders: Discharge Order (Routine); Ordered 06/12/20 Ordered By: Evangelina Diamond DS: Diagnosis Discharge Diagnosis (1) Adenocarcinoma of appendix: Status: Chronic
[2020-06-12 12:47] VITALS: BP 135/77; PULSE 55; RESP 16; TEMP 37; O2SAT 100
== END 2020-06-12 13:14 | disposition home or self-care (01) ==
PROVIDERS: PCP Emergency Medicine; Visit Provider Surgery
PROC: 0DJD8ZZ Inspection of Lower Intestinal Tract, Via Natural or Artificial Opening Endoscopic (ICD-10-PCS; CPT 45378; principal; 2020-06-12 11:30)
DX: Z12.11 Encounter for screening for malignant neoplasm of colon (principal); Z85.038 Personal history of other malignant neoplasm of large intestine; Z80.0 Family history of malignant neoplasm of digestive organs; Z80.7 Family history of other malignant neoplasms of lymphoid, hematopoietic and related tissues; Z90.49 Acquired absence of other specified parts of digestive tract; Z98.0 Intestinal bypass and anastomosis status
CPT/HCPCS: 45380; 88305; J2405

== ENCOUNTER 2020-06-26 17:42 | Outpatient (REF) | payer BC, SELFPAY ==
[2020-06-28 14:09] LABS: COVID-19 RT-PCR UVMMC Result Negative (Negative)
== END 2020-06-26 17:43 | disposition home or self-care (01) ==
LOC: LBN 17:42
PROVIDERS: PCP Emergency Medicine; Visit Provider Nurse Practitioner Adult Health
DX: R05 Cough (principal)
CPT/HCPCS: U0003

== ENCOUNTER 2021-06-25 03:45 | Outpatient (CLI) | payer BC, SELFPAY ==
[2021-06-25 09:46] LABS: Calculated LDL 178 mg/dL (<100); Cholesterol 244 mg/dL (<200); HDL Cholesterol 49 mg/dL (40-60); Triglyceride 88 mg/dL (<150)
== END 2021-06-25 03:46 | disposition home or self-care (01) ==
LOC: LBO 03:45
PROVIDERS: PCP Family Medicine; Visit Provider Emergency Medicine
DX: I10 Essential (primary) hypertension (principal)
CPT/HCPCS: 36415; 80061

== ENCOUNTER → 2021-08-12 00:41 | Outpatient (CLI) | payer BC, SELFPAY ==
[2021-08-12] MEDS: Omnipaque 350 MG/ML 50 ML BTL IJ (14:25)
[2021-08-12] MEDS: Breeza Beverage 473 ML BTL 946 ML PO (14:26)
[2021-08-12 14:33] LABS: Abs Immature Grans 0.02 10^3/uL (0.0-0.06); Absolute Basophil Count 0.04 10^3/uL (0.0-0.2); Absolute Eosinophil Count 0.06 10^3/uL (0.0-0.7); Absolute Monocyte Count 0.47 10^3/uL (0.1-0.8); Absolute Neutrophil Count 3.02 10^3/uL (1.2-6.7); Basophils % 0.6; HCT 41.9 % (40.0-50.0); HGB 14.7 g/dL (13.5-17.5); Immature Grans % 0.3; Lymphocytes % 42.8; MCH 30.5 pg (27.0-33.0); MCHC 35.1 % (32.0-36.0); MCV 86.9 fL (80-95); MPV 9.2 fL (8.0-11.0); Monocytes % 7.4; Neutrophils % 47.9; Nucleated RBC 0 %; Platelet Count 207 10^3/uL (130-400); RBC 4.82 10^6/uL (4.36-5.78); RDW 12.1 % (11.8-14.1); RDW-SD 38.2 fL; WBC 6.31 10^3/uL (4.4-10.8)
--- NOTE | 2021-08-12 15:30 | DI.CT_ITS ---
Exam(s) CT CHEST/ABD/PEL W EXAM: CT CHEST/ABD/PEL W CLINICAL HISTORY: MALIGNANT NEOPLASM OF APPENDIX, C18.1, S/P RT HEMICOLECTOMY IN 2014 TECHNIQUE: Imaging Protocol: Axial computed tomography images with coronal and sagittal reformatted images were created and reviewed CONTRAST MATERIAL: Intravenous: Omnipaque 350 Contrast volume:100 mL Oral: Yes COMPARISON: CT CT ABDOMEN PELVIS W from 06/04/2020 FINDINGS: CHEST: Tracheobronchial tree: Patent where visualized. Pulmonary parenchyma: No consolidation or dominant measurable mass. No architectural distortion. Ther e is a stable triangular nodular density associated with the right minor fissure inferiorly. This ma y represent a lymph node. The subpleural nodule along the lateral aspect of the left lower lobe is u nchanged. No new or suspicious pulmonary nodules are present. Visualized thyroid gland: Unremarkable. Mediastinum and Lola: No dominant adenopathy or fluid collection. The esophagus is unremarkable. Pleura: No effusion or pneumothorax. Heart: The heart is not dilated. No coronary artery calcifications are seen. No pericardial effusion. Pulmonary arteries: No pulmonary emboli are identified. Aorta: Thoracic aorta non-dilated. No evidence of dissection Lymph nodes: Within normal limits. Soft tissues: Unremarkable. Bones:Within normal limits for the patient's age. No suspicious lytic or sclerotic lesions. ABDOMEN: Liver: Normal density. No measurable mass. Portal, Superior Mesenteric, and Splenic Veins: Unremarkable. Gallbladder and Biliary Tract: No radiodense calculus or dilation. Pancreas: Normal density, no abnormal calcifications or inflammatory process. Spleen: Normal. Adrenals: No masses seen. Kidneys: There is scarring seen in the left kidney. There are bilateral nonobstructing stones. Ther e is a tiny cyst in the left kidney. No follow-up is recommended. Abdominal Aorta: Abdominal portion non-dilated. Atherosclerosis. Bowel: No obstruction or bowel wall thickening. Appendix is unremarkable. Status partial post hemicol ectomy. No evidence of a recurrent mass. Peritoneal Cavity: No ascites, collection or mesenteric inflammatory response. No free air. Lymph Nodes: Within normal limits. Bones: Within normal limits for the patient's age. No suspicious lytic or sclerotic lesions. Soft Tissues: Unremarkable. PELVIS: Bladder: Symmetric distention, no gross wall thickening. Reproductive Organs: Mildly enlarged. Lymph Nodes: Within normal limits. Bones: Within normal limits. IMPRESSION: 1. No evidence of thoracic, abdominal or pelvic metastatic disease. 2. Stable incidental findings in the chest abdomen and pelvis as described above. RADIATION DOSE DELIVERED: 1,732.42mGy.cm Total DLP DATA REPOSITORY: All CT scans at this facility are submitted to the National Radiology Data Registry (NRDR) Dose Index Registry (DIR) with the [employer] (ACR). RADIATION OPTIMIZATION: All CT scans at this facility use at least one of these dose optimization te chniques: automated exposure control; mA and/or kV adjustment per patient size (includes targeted exa ms where dose is matched to clinical indication); or iterative reconstruction.
[2021-08-12 16:01] LABS: ALT 54 U/L (16-63); AST 27 U/L (15-37); Alkaline Phosphatase 54 U/L (46-116); Anion Gap 9.4 mmol/L (3-11); BUN 20 mg/dL (7-18); Bilirubin, Total 0.7 mg/dL (0.2-1.0); CO2 28.6 mmol/L (21.0-32.0); CREATININE 1.1 mg/dL (0.70-1.30); Calcium 9.6 mg/dL (8.5-10.1); Chloride 103 mmol/L (98-107); Glucose 89 mg/dL (74-106); Sodium 141 mmol/L (136-145); Total Protein 7.9 g/dL (6.4-8.2)
[2021-08-12 22:43] LABS: CEA 2.5 ng/mL (See Note)
== END ==
PROVIDERS: PCP Family Medicine; Visit Provider Internal Medicine
DX: C18.1 Malignant neoplasm of appendix (principal); R91.1 Solitary pulmonary nodule; N20.0 Calculus of kidney; N28.1 Cyst of kidney, acquired; Z90.49 Acquired absence of other specified parts of digestive tract
CPT/HCPCS: 74177; 80053; 84153; 71260; 82378; 85025; Q9967

== ENCOUNTER 2022-08-01 01:39 | Outpatient (CLI) | payer BC, SELFPAY ==
[2022-08-01 08:30] LABS: Abs Immature Grans 0.01 10^3/uL (0.0-0.06); Absolute Basophil Count 0.03 10^3/uL (0.0-0.2); Absolute Eosinophil Count 0.08 10^3/uL (0.0-0.7); Absolute Lymphocyte Count 1.86 10^3/uL (1.2-3.4); Absolute Monocyte Count 0.47 10^3/uL (0.1-0.8); Basophils % 0.5; Eosinophils % 1.4; HGB 14.6 g/dL (13.5-17.5); Immature Grans % 0.2; Lymphocytes % 32.3; MCH 31.2 pg (27.0-33.0); MCHC 36.5 % (32.0-36.0); MCV 86 fL (80-95); MPV 8.8 fL (8.0-11.0); Monocytes % 8.2; Neutrophils % 57.4; Platelet Count 184 10^3/uL (130-400); RBC 4.68 10^6/uL (4.36-5.78); RDW 11.9 % (11.8-14.1); RDW-SD 37.3 fL; WBC 5.75 10^3/uL (4.4-10.8)
[2022-08-01] MEDS: Barium Sulfate 2% W/V-Berry Smoothie 450 ML BTL 900 ML PO (08:33)
[2022-08-01 08:48] LABS: ALT 45 U/L (16-63); AST 28 U/L (15-37); Albumin 4.3 g/dL (3.4-5.0); Alkaline Phosphatase 56 U/L (46-116); Anion Gap 6.7 mmol/L (3-11); BUN 16 mg/dL (7-18); Bilirubin, Total 0.7 mg/dL (0.2-1.0); CO2 28.3 mmol/L (21.0-32.0); CREATININE 1.2 mg/dL (0.70-1.30); Calcium 8.8 mg/dL (8.5-10.1); Chloride 105 mmol/L (98-107); Estimated GFR 73.67 (mL/min/1.73m2); Glucose 100 mg/dL (74-106); Sodium 140 mmol/L (136-145); Total Protein 7.3 g/dL (6.4-8.2)
--- NOTE | 2022-08-01 10:00 | DI.CT_ITS ---
Exam(s) CT CHEST/ABD/PEL W EXAM: CT CHEST/ABD/PEL W CLINICAL HISTORY: NEOPLASM OF APPENDIX C18.1 SURVEILLANCE. TECHNIQUE: Imaging Protocol: Axial computed tomography images with coronal and sagittal reformatted images were created and reviewed CONTRAST MATERIAL: Intravenous: Omnipaque 350 Contrast volume:100 ml Oral: yes / no COMPARISON: CT CT CHEST/ABD/PEL W from 08/12/2021 FINDINGS: CHEST: Tracheobronchial tree: Patent where visualized. Pulmonary parenchyma: No consolidation or dominant measurable mass. Stable left basilar subpleural n odule. Stable nodule right minor fissure. No new nodules. Pleura: No effusion or pneumothorax. Lymph nodes: Within normal limits. Aorta: Thoracic portion non-dilated. Heart: Normal size. No pericardial effusion. No coronary artery calcifications visible. Bones: Degenerative disc changes in the mid to lower thoracic spine. No lytic or blastic lesions. S table mild midthoracic compression fractures. ABDOMEN: Liver: Normal density. No measurable mass. Gallbladder and biliary tract: No radiodense calculus or dilation. Pancreas: Normal density, no abnormal calcifications or inflammatory process. Spleen: Normal. Kidneys: Area of scarring again noted in the mid posterior left kidney. Small adjacent cyst. No vishnu picious masses seen. Small nonobstructing stone lower pole right kidney. Adrenal glands: No masses seen. Aorta: Abdominal portion non-dilated. Lymph nodes: Within normal limits. Soft tissues: Unremarkable. PELVIS: Bladder: Symmetric distention, no gross wall thickening. Bowel: Partial right colectomy. Anastomosis unremarkable. No obstruction or bowel wall thickening. Peritoneal cavity: No ascites, collection or mesenteric inflammatory response. Bones: Unremarkable for age.. Reproductive organs: Prostate mildly enlarged IMPRESSION: No evidence of metastatic disease in the chest abdomen or pelvis. Stable area of left renal scarring. No evidence of parent mass. RADIATION DOSE DELIVERED: 2,073.25mGy.cm Total DLP DATA REPOSITORY: All CT scans at this facility are submitted to the National Radiology Data Registry (NRDR) Dose Index Registry (DIR) with the [employer] (ACR). RADIATION OPTIMIZATION: All CT scans at this facility use at least one of these dose optimization te chniques: automated exposure control; mA and/or kV adjustment per patient size (includes targeted exa ms where dose is matched to clinical indication); or iterative reconstruction.
[2022-08-01] MEDS: Omnipaque 350 MG/ML 500 ML BTL-Imaging package IJ (10:17)
[2022-08-01] MEDS: Normal Saline - Diluent 50 ML VIAL IJ (10:17)
[2022-08-01] MEDS: Normal Saline Flush 10 ML SYR IVP (10:18)
[2022-08-01 18:19] LABS: CEA 3.3 ng/mL (See Note)
[2022-08-03 13:19] LABS: PSA, Ultrasensitive 1.2 ng/mL (<= 3.5)
== END 2022-08-01 01:59 ==
PROVIDERS: PCP Family Medicine; Visit Provider Internal Medicine
DX: C18.1 Malignant neoplasm of appendix (principal); R91.8 Other nonspecific abnormal finding of lung field; N28.89 Other specified disorders of kidney and ureter; N40.0 Benign prostatic hyperplasia without lower urinary tract symptoms; Z98.0 Intestinal bypass and anastomosis status; Z85.528 Personal history of other malignant neoplasm of kidney; Z12.5 Encounter for screening for malignant neoplasm of prostate
CPT/HCPCS: 74177; 80053; 84153; 71260; 82378; 85025

== ENCOUNTER 2023-04-06 13:57 | Outpatient (CLI) | payer BC, SELFPAY ==
--- NOTE | 2023-04-06 13:51 | DI.RAD_ITS ---
Exam(s) XR KNEE LT 4V AP,LAT,JONATHAN,PAT EXAM: XR KNEE LT 4V AP,LAT,JONATHAN,PAT CLINICAL HISTORY: eval L knee pain and locking. TECHNIQUE: 2D digital imaging was performed. COMPARISON: No exams were available for comparison FINDINGS: Four views. There is evidence of prior ACL surgery. No fracture nor joint effusion evident. Mild-moderate degen erative changes noted in the medial lateral compartments. No obvious degenerative changes in the pat ellofemoral compartment. Bone density normal. No osseous lesions. IMPRESSION: Previous ACL surgery. Degenerative change noted in the medial and lateral compartments. DATA REPOSITORY: RADIATION DOSE DELIVERED:
== END 2023-04-06 13:58 | disposition home or self-care (01) ==
LOC: DIORS 13:57
PROVIDERS: PCP Family Medicine; Visit Provider Physician Assistant
DX: M25.562 Pain in left knee (principal); Z98.890 Other specified postprocedural states
CPT/HCPCS: 73564

== ENCOUNTER → 2023-07-14 00:44 | Outpatient (CLI) | payer BC, SELFPAY ==
--- NOTE | 2023-07-14 | DI.CT_ITS ---
Exam(s) CT CHEST/ABD/PEL W EXAM: CT CHEST/ABD/PEL W CLINICAL HISTORY: NEOPLASM OF APPENDIX C18.1 HX RENAL CARCINOMA S/P PARTIAL NEPHRECTOMY TECHNIQUE: Imaging Protocol: Axial computed tomography images with coronal and sagittal reformatted images were created and reviewed CONTRAST MATERIAL: Intravenous: Omnipaque 350 contrast volume:100 mL Oral: Yes COMPARISON: CT CT CHEST/ABD/PEL W from 08/12/[address] CHEST/ABD/PEL W from 08/01/2022 FINDINGS: CHEST: Tracheobronchial tree: Patent where visualized. Pulmonary parenchyma: No consolidation or dominant measurable mass. No architectural distortion. No n ew pulmonary nodules. Visualized thyroid gland: Unremarkable. Mediastinum and Lola: No dominant adenopathy or fluid collection. The esophagus is unremarkable. Pleura: No effusion or pneumothorax. Heart: The heart is not dilated. No coronary artery calcifications are seen. There is a tiny pericard ial effusion or pericardial thickening present. Pulmonary arteries: No pulmonary emboli are identified. Aorta: Thoracic aorta non-dilated. No evidence of dissection. Lymph nodes: Within normal limits. Soft tissues: Unremarkable. Bones:Within normal limits for the patient's age. No aggressive osseous lesions. ABDOMEN: Liver: Normal density. No measurable mass. Portal, Superior Mesenteric, and Splenic Veins: Unremarkable. Gallbladder and Biliary Tract: No radiodense calculus or dilation. Pancreas: Normal density, no abnormal calcifications or inflammatory process. Spleen: Normal. Adrenals: No masses seen. Kidneys: Partial left nephrectomy. There is a stable cyst in the left kidney. Bilateral nephrolithi asis. No obstructive uropathy. No masses seen. Abdominal Aorta: Abdominal portion non-dilated. Bowel: No obstruction or bowel wall thickening. There is a moderate amount of stool in the colon. Th is may reflect constipation. Status post appendectomy. Peritoneal Cavity: No ascites, collection or mesenteric inflammatory response. No free air. Lymph Nodes: Within normal limits. Bones: Within normal limits for the patient's age. No aggressive osseous lesions. Soft Tissues: Unremarkable. PELVIS: Bladder: Symmetric distention, no gross wall thickening. Reproductive Organs: Mildly enlarged prostate gland. Lymph Nodes: Within normal limits. Bones: Within normal limits. IMPRESSION: 1. No evidence of pulmonary, abdominal or pelvic metastatic disease. 2. Status post partial left nephrectomy and appendectomy. 3. Bilateral nephrolithiasis. No obstructive uropathy. RADIATION DOSE DELIVERED: Total DLP DATA REPOSITORY: All CT scans at this facility are submitted to the National Radiology Data Registry (NRDR) Dose Index Registry (DIR) with the [employer] (ACR). RADIATION OPTIMIZATION: All CT scans at this facility use at least one of these dose optimization te chniques: automated exposure control; mA and/or kV adjustment per patient size (includes targeted exa ms where dose is matched to clinical indication); or iterative reconstruction.
[2023-07-14] MEDS: Barium Sulfate 2% W/V-Berry Smoothie 450 ML BTL PO ×2 (08:28→08:29)
[2023-07-14 08:29] LABS: Abs Immature Grans 0.01 10^3/uL (0.0-0.06); Absolute Basophil Count 0.04 10^3/uL (0.0-0.2); Absolute Eosinophil Count 0.09 10^3/uL (0.0-0.7); Absolute Lymphocyte Count 1.58 10^3/uL (1.2-3.4); Absolute Monocyte Count 0.45 10^3/uL (0.1-0.8); Absolute Neutrophil Count 3.22 10^3/uL (1.2-6.7); Basophils % 0.7; Eosinophils % 1.7; HCT 38.6 % (40.0-50.0); Immature Grans % 0.2; Lymphocytes % 29.3; MCH 30.8 pg (27.0-33.0); MCHC 36.3 % (32.0-36.0); MCV 85 fL (80-95); Monocytes % 8.3; Neutrophils % 59.8; Platelet Count 203 10^3/uL (130-400); RBC 4.54 10^6/uL (4.36-5.78); WBC 5.39 10^3/uL (4.4-10.8)
[2023-07-14 08:47] LABS: ALT 41 U/L (16-63); AST 27 U/L (15-37); Albumin 4.5 g/dL (3.4-5.0); Alkaline Phosphatase 54 U/L (46-116); Anion Gap 7.7 mmol/L (3-11); BUN 19 mg/dL (7-18); Bilirubin, Total 0.6 mg/dL (0.2-1.0); CO2 26.3 mmol/L (21.0-32.0); CREATININE 1.2 mg/dL (0.70-1.30); Calcium 9.1 mg/dL (8.5-10.1); Chloride 106 mmol/L (98-107); Estimated GFR 73.22 (mL/min/1.73m2); Glucose 98 mg/dL (74-106); Potassium 4.1 mmol/L (3.5-5.1); Sodium 140 mmol/L (136-145); Total Protein 7.5 g/dL (6.4-8.2)
[2023-07-14] MEDS: Omnipaque 350 MG/ML 100 ML BTL IJ (10:12)
[2023-07-14] MEDS: Normal Saline - Diluent 50 ML VIAL IJ (10:13)
[2023-07-14 20:40] LABS: Lab Add On Test DONE
[2023-07-14 20:52] LABS: Calculated LDL 90 mg/dL (<100); Cholesterol 158 mg/dL (<200); HDL Cholesterol 54 mg/dL (40-60); Triglyceride 74 mg/dL (<150)
[2023-07-17 14:09] LABS: PSA, Ultrasensitive 0.95 ng/mL (<= 3.5)
== END ==
PROVIDERS: Nurse Practitioner; PCP Family Medicine; Visit Provider Internal Medicine
DX: I10 Essential (primary) hypertension (principal); C18.1 Malignant neoplasm of appendix
CPT/HCPCS: 74177; 80053; 80061; 84153; 71260; 82378; 85025; J3490

== ENCOUNTER 2023-12-27 09:58 | Day surgery (SDC) | payer BC, SELFPAY ==
--- NOTE | 2023-12-26 20:14 | PDOC.DSDIS_ITS ---
Date of service: 12/27/23 Time of Service: 12:47 Discharge Plan Disposition Patient Disposition: Home Condition: Good Discharge Details Reason For Visit: screening colonscopy Attending Provider: Ramesh Gregorio Primary Care Provider: Flor Rodriguez Home Meds and New Rx's Prescriptions: Continued tamsulosin [Flomax] 0.4 mg capsule 0.4 mg PO DAILY PRN gabapentin 300 mg capsule 300 mg PO QID Qty: 360 3RF amlodipine 5 mg tablet 5 mg PO DAILY Qty: 90 3RF rosuvastatin [Crestor] 10 mg tablet 10 mg PO DAILY Qty: 90 3RF zolpidem [Ambien CR] 12.5 mg tablet,ext release multiphase 12.5 mg PO QHS PRN (Reason: sleep) Qty: 30 2RF ibuprofen [IBU-200] 200 mg Tablet 800 mg PO Q6H PRN Discontinued bisacodyl [Dulcolax (bisacodyl)] 5 mg tablet,delayed release (DR/EC) 5 mg PO ONCE Qty: 4 0RF Rx Instructions: Take per colonoscopy instructions provided by ordering providers office polyethylene glycol 3350 17 gram/dose powder 17 g PO ONCE Qty: 238 0RF Rx Instructions: Take per colonoscopy instructions provided by ordering providers office Discharge Instructions Additional Instructions: Mary Alice, we were able to complete your colonoscopy today without any difficulty at all. Your prep was excellent, and I could see everything fine. I was able to get all the way up to the connection with your small bowel is now attached to your large intestine (this is known as the anastomosis). We went across this area several times. Everything is all normal and healthy. There were no signs of any tumors, polyps, or anything at all worrisome. I think it would be very reasonable to proceed with another colonoscopy in 3 years if your oncologist are in agreement. If you need anything or have any questions at all, please do not hesitate to ask at any point. 1. If tolerated, consume a soft, low fiber diet for 1-2 days. 2[address] Do not drive, drink alcohol, operate machinery, make critical decisions, or do activities that require coordination or balance for 24 hours. 3. Because air was put into your colon during the procedure, expelling air from your rectum (passing gas or farting) is normal. 4. You may not have a bowel movement for 1-3 days because of the colonoscopy pr ep. This is normal. 5. Go directly to the emergency room if you notice any of the following: Develop chills (warm to touch), or if you have a thermometer and your temperature is above 101 Difficulty breathing or difficultly swallowing Persistent vomiting Severe abdominal pain, other than gas cramps Severe chest pain Black, tarry stools Any bleeding ? exceeding one tablespoon 6. Call your physician if the site where your intravenous was started becomes red, swollen, painful, and warm to touch. 7. Your physician has reviewed your pre-procedure medications. Please continue to take those medications as previously ordered. You will be given specific information/education regarding any changes to your medications before leaving. Stand Alone Forms: Anesthesia Discharge InstSusan, Scottie Barros (DSU) Activity:: Activity as Tolerated Diet:: As Tolerated Discharge Orders Discharge Orders: Discharge Order (Routine); Ordered 12/26/23 Ordered By: Ramesh Gregorio DS: Diagnosis Discharge Diagnosis (1) Encounter for screening colonoscopy: Status: Acute Asessment and Plan: Negative screening colonoscopy
--- NOTE | 2023-12-26 20:17 | W.COLOREPORT ---
Date of service: 12/27/23 Time of Service: 12:48 Colonoscopy Report Date of procedure: 12/27/23 Pre-op diagnosis general: screening colonoscopy Post-op diagnosis procedure note: other (Normal colonoscopy) Procedure: colonoscopy Surgeon: Ramesh Gregorio Anesthesia Type: General:No Airway Estimated blood loss (mL): 0 Pathology: none sent Complications: None Disposition: same day Indications: Mary Alice is a 53 year old man with a history of colon cancer and right hemicolectomy who needs his next screening colonoscopy Prep: Miralax/Dulcolax Procedure Start Time: 12:28 Procedure End Time: 12:42 Retraction Time: 8 Findings: Normal colonoscopy with healthy-appearing anastomosis around 95 cm from the anus Procedure Description: After the induction of anesthesia, and with the patient in left lateral decubitus position, I began by performing an external anorectal exam.? Perineum and skin were normal, as was the anal verge.? There was no evidence of external hemorrhoids.? Next, I performed a digital rectal exam.? I did appreciate any abnormal findings.? Next, I advanced a colonoscope into the rectal vault.? I performed retroflexion.? This was normal.? Using insufflation, I then advanced the colonoscope beyond the rectal folds and into the anastomosis.? The ileocolic anastomosis measured approximately 95 cm from the anus.? It appears to have a locs-sn-chns orientation. I took several passes across the anastomosis, and within each limb of the ileal and colonic sides. It all appeared normal. There were no polyps or tumors. I then began withdrawing the colonoscope using repeated irrigation as necessary for full evaluation of the colonic mucosa. ?Once the scope was withdrawn to the level of the rectum, great care was taken to examine portions of the rectal folds.? The colonoscopy was normal. Finally, the scope was withdrawn and the patient was brought to the same-day surgery recovery unit as the anesthetic wore off. ?The findings and instructions were shared with the patient prior to discharge. [place] Bowel Prep [place] Bowel Prep Left Colon: 3 Transverse Colon: 3 Total Score: 6
[2023-12-27 10:06] VITALS: BP 130/88; PULSE 67; RESP 16; TEMP 36.3; O2SAT 99
[2023-12-27] MEDS: Lactated Ringers 1,000 ML 80 ML IV (10:28)
[2023-12-27 10:56] VITALS: BMI 28.8
--- NOTE | 2023-12-27 10:56 | ANES.PREOP_ITS ---
General Info Date of Service Date Performed: 12/27/23 Height: 6 ft 2 in Weight: 101.605 kg Body Mass Index (BMI): 28.8 Surgical Procedure: Operation Date: 12/27/23 11:35 Proposed Procedure Side Surgeon luis Gregorio MD Meds Allergies and Home Medications Allergies Allergy/AdvReac Type Severity Reaction Status Date / Time rofecoxib (From Vioxx) AdvReac ESOPHIGITIS Verified 12/27/23 10:10 anesthesia AdvReac Nausea Uncoded 12/27/23 10:10 Home Medication ?Medication ?Instructions ?Recorded ibuprofen 200 mg tablet (IBU-200) 800 mg PO Q6H PRN 01/16/20 tamsulosin 0.4 mg capsule (Flomax) 0.4 mg PO DAILY PRN 12/31/21 gabapentin 300 mg capsule 300 mg PO QID pelvic pain #360 caps 12/30/22 amlodipine 5 mg tablet 5 mg PO DAILY #90 tabs 04/19/23 rosuvastatin 10 mg tablet (Crestor) 10 mg PO DAILY #90 tabs 06/13/23 zolpidem 12.5 mg tablet,extended 12.5 mg PO QHS PRN sleep #30 tabs 10/24/23 release,multiphase (Ambien CR) Current Visit Medications: Current Medications Generic Name Dose Route Start Last Admin Trade Name Freq PRN Reason Stop Dose Admin Ringer's Solution 1,000 mls @ 80 mls/hr 12/27/23 06:00 12/27/23 10:28 IV 01/25/24 23:59 80 mls/hr INFUSION JAY Administration IV Miscellaneous Supplies 1 each 12/27/23 06:00 Iv Access IV 01/25/24 23:59 DIRECTED JAY Ondansetron HCl 4 mg 12/26/23 20:19 Ondansetron 4 Mg/2 Ml Vial IVP 01/25/24 20:18 Q4H PRN PRN Nausea / Vomiting Sodium Chloride 0 ml 12/27/23 06:00 Normal Saline Flush 10 Ml Syr IV 01/25/24 23:59 PRN PRN Sodium Chloride 0 ml 12/27/23 06:00 Normal Saline 10 Ml Vial IJ 01/25/24 23:59 DIRECTED PRN Sterile Water 0 ml 12/27/23 06:00 Water,Injection,Sterile 10 Ml Vial IJ 01/25/24 23:59 DIRECTED PRN PFSH Active Problems Active Problems: Problem Status Onset Code Encounter for screening colonoscopy Acute Z12.11 Post-traumatic osteoarthritis of left knee Acute M17.32 Internal derangement of left knee Acute M23.92 Left knee pain Acute M25.562 Renal stones Chronic N20.0 Heart murmur Chronic R01.1 Insomnia Chronic G47.00 Depressive disorder Acute F32.9 Cervical lymphadenopathy Acute 02/04/13 R59.0 Hypertension Chronic I10 Pelvic pain in male Acute R10.2 Medical History Medical History Hx of renal cell carcinoma History of malignant neoplasm of appendix History of chemotherapy hyperthermic intraperitoneal chemotherapy HIPEC 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, 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3 C L 67 16 130/88 99 12/27/23 10:06 12/27/23 10:06 12/27/23 10:06 12/27/23 10:06 12/27/23 10:06 Lab Results Blood Type / Crossmatch: No Data to Display Complete Blood Count: No Data to Display Complete Metabolic Panel: No Data to Display Liver Function Panel: No Data to Display Coagulation Panel: No Data to Display Cardiac Panel: No Data to Display Arterial Blood Gas: No Data to Display Venous Blood Gas: No Data to Display Pancreas Panel: No Data to Display Thyroid Panel: No Data to Display Infectious Disease: No Data to Display Blood Cultures: No Data to Display Toxicology Panel: No Data to Display Anesthesia Assessment and Plan Anesthesia History Personal History: PONV Family History: No Family History of Anesthesia Complications Exercise Tolerance Exercise Tolerance: Metabolic Equivalents>4 Pertinent Negatives Pertinent Negatives: No Symptoms of GERD Cardiac & Pulmonary Exam Cardiac Exam: Normal S1/S2 Heart Sounds Pulmonary Exam: Clear Bilateral Breath Sounds Implantable Cardiac Device Does patient have a Pacemaker or an ICD?: No Airway Exam Known Difficult Airway: No Mallampati Class: 2 Mouth Opening: Normal (> 3cm) Thyromental Distance: Greater than 3 cm Neck Range of Motion: Full ROM Neck Circumference: Normal Teeth Condition: Normal Dentition ASA Classification ASA Score: ASA 2 Emergency Case?: No NPO Status NPO Status: NPO Clears >2 hours, Solids >8 hours Anesthesia Plan Resuscitation Status: Full Code Anesthesia Technique: General Anesthesia Airway Planned: Natural Airway Monitors Used: Standard Monitors
[2023-12-27 12:49] VITALS: BP 111/73; PULSE 60; RESP 14; TEMP 36; O2SAT 98
--- NOTE | 2023-12-27 13:13 | W.ANESPOSTOP ---
Postoperative Evaluation Date, Time and Location Date Performed: 12/27/23 Time Performed: 13:13 Patient Location: Day Surgery Unit Vital Signs Most Recent Imported Vital Signs: Most Recent Vital Signs Temp Pulse Resp BP Pulse Ox 36 C L 60 14 111/73 98 12/27/23 12:49 12/27/23 12:49 12/27/23 12:49 12/27/23 12:49 12/27/23 12:49 Pain Score Most Recent Pain Score: Most Recent Pain Score Pain Level 0 12/27/23 12:49 Assessment Mental Status: Awake (Alert & Oriented to Patient Baseline) Airway and Respiratory Function: Patent airway with normal (patient baseline) respiratory exam Cardiovascular Function: Hemodynamically Stable Hydration Status: Adequately Hydrated Nausea & Vomiting: No Nausea or Vomiting Pain: Pt. Denies Any Pain Peripheral Nerve Block: Patient did not receive a nerve block
[2023-12-27 13:23] VITALS: BP 118/89; PULSE 52; RESP 16; TEMP 36; O2SAT 97
== END 2023-12-27 13:28 | disposition home or self-care (01) ==
LOC: SUR 09:58
PROVIDERS: PCP Family Medicine; Visit Provider Surgery
PROC: 0DJD8ZZ Inspection of Lower Intestinal Tract, Via Natural or Artificial Opening Endoscopic (ICD-10-PCS; CPT 45378; principal; 2023-12-27 11:30)
DX: Z12.11 Encounter for screening for malignant neoplasm of colon (principal); Z80.0 Family history of malignant neoplasm of digestive organs; Z85.038 Personal history of other malignant neoplasm of large intestine
CPT/HCPCS: 45378; J2001; J2405; J2704

== ENCOUNTER 2024-07-09 02:23 | Outpatient (CLI) | payer BC, SELFPAY ==
--- NOTE | 2024-07-09 | DI.CT_ITS ---
Exam(s) CT CHEST/ABD/PEL W EXAM: CT CHEST/ABD/PEL W CLINICAL HISTORY: RENAL CA C64.9 AND APPENDIX C18.1 PERS HX COLON KIDNEY CA, SURVEILANCE. TECHNIQUE: Imaging Protocol: Axial computed tomography images with coronal and sagittal reformatted images were created and reviewed CONTRAST MATERIAL: Intravenous: Omnipaque 350 Contrast volume:100 ml Oral: Yes. Oral contrast was also administered for bowel opacification.zz COMPARISON: CT CT CHEST/ABD/PEL W from 08/01/[address] CHEST/ABD/PEL W from 07/14/2023 FINDINGS: CHEST: LUNGS: There is an unchanged small 2-3 millimeter nodule in the lateral aspect of the anterior basal segment of the right lower lobe, unchanged from July 2023 and July 2022. There are no new ominous pulmonary nodules, infiltrates, nor pleural effusions. No new findings in the trachea and mainstem b ronchi. MEDIASTINUM: There is no hilar nor mediastinal adenopathy. Visualized thyroid unremarkable. CARDIAC: Heart size is normal. There is no pericardial effusion.Caliber of the thoracic aorta is wit hin normal limits. OSSEOUS: No significant osseous lesions.No new fractures.. ABDOMEN: There is no ascites. LIVER: There are no focal hepatic lesions nor dilatation of intrahepatic ducts. GALLBLADDER/BILIARY: No obvious gallbladder pathology. CBD is not dilated. PANCREAS: No evidence of pancreatic mass nor dilatation of the pancreatic duct. SPLEEN: Spleen is not enlarged. There are no intrasplenic lesions. Splenic and portal veins are beard nt. ADRENALS: There are no significant adrenal masses. KIDNEYS: Small calculus in lower pole calyx of the right kidney again noted as well as tiny calculus in the mid pole level. No other right kidney findings nor hydronephrosis.. Postsurgical partial nep hrectomy appearance of the left kidney is unchanged. No new significant masses the left kidney. No calculi in left kidney. No hydronephrosis nor hydroureter. ABDOMINAL AORTA: Abdominal aorta is not enlarged. LYMPH NODES: There is no retroperitoneal nor paraaortic adenopathy. ABDOMINAL WALL: No evidence of significant anterior abdominal wall nor inguinal hernia. GI: There is no evidence of bowel obstruction.The appendix is again noted be surgically absent. Ther e is no abnormal fluid collection or mass in this region nor lymphadenopathy in the mesoappendix vannessa on. PELVIS: LYMPH NODES: There is no intrapelvic nor inguinal adenopathy. GI: There is no significant sigmoid diverticular disease. URINARY BLADDER: No calculi nor masses evident REPRODUCTIVE: Prostate size mildly enlarged but unchanged. Seminal vesicles unremarkable. OSSEOUS: No significant osseous lesions. No fractures. IMPRESSION: 1. Continued stable appearance with no evidence of metastatic disease in the chest, abdomen, and pelv is. 2. Left partial nephrectomy site and appendectomy site appears stable. 3. Nephrolithiasis again noted, nonobstructive. 4. No new osseous findings. RADIATION DOSE DELIVERED: 1,150.58mGy.cm Total DLP DATA REPOSITORY: All CT scans at this facility are submitted to the National Radiology Data Registry (NRDR) Dose Index Registry (DIR) with the [employer] (A[employer]). RADIATION OPTIMIZATION: All CT scans at this facility use at least one of these dose optimization te chniques: automated exposure control; mA and/or kV adjustment per patient size (includes targeted exa ms where dose is matched to clinical indication); or iterative reconstruction.
[2024-07-09] MEDS: Barium Sulfate 2% W/V-Berry Smoothie 450 ML BTL PO ×2 (09:23→09:24)
[2024-07-09 09:25] LABS: HCT 39.5 % (40.0-50.0); HGB 14.1 g/dL (13.5-17.5); MCH 31.1 pg (27.0-33.0); MCHC 35.7 % (32.0-36.0); MCV 87 fL (80-95); MPV 8.9 fL (8.0-11.0); Platelet Count 225 10^3/uL (130-400); RBC 4.54 10^6/uL (4.36-5.78); RDW 11.9 % (11.8-14.1); RDW-SD 38.2 fL; WBC 8.34 10^3/uL (4.4-10.8)
[2024-07-09 09:49] LABS: ALT 37 U/L (16-63); AST 27 U/L (15-37); Albumin 4.6 g/dL (3.4-5.0); Alkaline Phosphatase 59 U/L (46-116); Anion Gap 9.5 mmol/L (3-11); BUN 14 mg/dL (7-18); Bilirubin, Total 0.78 mg/dL (0.2-1.0); CO2 26.5 mmol/L (21.0-32.0); CREATININE 1.2 mg/dL (0.70-1.30); Calcium 9.1 mg/dL (8.5-10.1); Chloride 107 mmol/L (98-107); Estimated GFR 72.76 (mL/min/1.73m2); Glucose 95 mg/dL (74-106); Potassium 4.4 mmol/L (3.5-5.1); Sodium 143 mmol/L (136-145); Total Protein 7.6 g/dL (6.4-8.2)
[2024-07-09 09:51] LABS: Hemoglobin A1C 5.4 % (<5.7)
[2024-07-09] MEDS: Omnipaque 350 MG/ML 100 ML BTL IJ (11:02)
[2024-07-09] MEDS: Normal Saline - Diluent 50 ML VIAL IJ (11:02)
[2024-07-09 23:34] LABS: CEA 3.1 ng/mL (See Note)
[2024-07-11 18:55] LABS: PSA, Ultrasensitive 1.2 ng/mL (<= 3.5)
== END 2024-07-09 02:43 ==
LOC: DI 02:24
PROVIDERS: Nurse Practitioner Family; PCP Family Medicine; Visit Provider Internal Medicine
DX: Z00.00 Encounter for general adult medical examination without abnormal findings (principal); C64.9 Malignant neoplasm of unspecified kidney, except renal pelvis; C18.1 Malignant neoplasm of appendix
CPT/HCPCS: 74177; 80053; 84153; 85027; 71260; 82378; 83036; J3490

== ENCOUNTER 2024-07-09 03:00 | Outpatient (CLI) | payer BC, SELFPAY ==
[2024-07-09 20:04] LABS: Lab Add On Test DONE
[2024-07-09 20:22] LABS: Calculated LDL 73 mg/dL (<100); Cholesterol 148 mg/dL (<200); HDL Cholesterol 56 mg/dL (>or=40); Triglyceride 97 mg/dL (<150)
== END 2024-07-09 03:01 | disposition home or self-care (01) ==
LOC: LBO 03:00
PROVIDERS: PCP Family Medicine; Visit Provider Internal Medicine
DX: I10 Essential (primary) hypertension (principal)
CPT/HCPCS: 80061